=== PATIENT | female | born 1995 | race Caucasian/White ===

== ENCOUNTER 2019-01-24 12:01 | Inpatient (IN) | payer BC, MEDICAID ==
[2019-01-24] MEDS ORDERED: Sodium Chloride 0.9% 1,000 ML IV ONE (13:20)
--- NOTE | 2019-01-24 13:31 | EDM.PDOC ---
ED HPI GENERAL MEDICAL PROBLEM - General Chief Complaint: Drug or Alcohol Abuse Stated Complaint: ALCOHOL EVALUATION Time Seen by Provider: 01/24/19 12:33 Source of Information: Reports: RN (Aimee from [facility]) History Limitations: Reports: Intoxication - History of Present Illness INITIAL COMMENTS - FREE TEXT/NARRATIVE: 23 yo F is brought here today from [facility] after showing up for a f/u appt w/ Meena Paty intoxicated and stated she had SI (she denies it now). No one is sure how much she has had to drink, but she is intoxicated and was drinking while in the clinic, had an entire bag of travel size EtOH on her person. Per DIA Yu at [place], she has had 2 DUI's in the past 2 weeks, was seen at least 3 times in the ED w/in the last month for intoxication, and has been driving her 7 yo around drunk. She has never been in treatment before, and was supposed to follow up outpt for EtOH treatment, but never did. She has h/o being hospitalized for seizures, most recently 2 week ago at hospital in [place]. She was held there for 24H for SI. Currently she is intoxicated and unable to provide history. 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 - Physical Exam Exam: See Below Exam Limited By: Intoxication General Appearance: Alert Eye Exam: Bilateral Eye: EOMI, Normal Inspection, PERRL Ears: Normal External Exam, Hearing Grossly Normal Nose: Normal Inspection, Normal Mucosa, No Blood Throat/Mouth: Normal Inspection, Normal Lips, Normal Teeth, Normal Gums, Normal Oropharynx, Normal Voice, No Airway Compromise Head Exam: Atraumatic, Normocephalic Neck: Normal Inspection, Supple, Non-Tender, Full Range of Motion Respiratory/Chest: No Respiratory Distress, Lungs Clear, Normal Breath Sounds, No Accessory Muscle Use, Chest Non-Tender Cardiovascular: Normal Peripheral Pulses, No Edema, No Gallop, No JVD, No Murmur , No Rub, Tachycardia GI/Abdominal: Normal Bowel Sounds, Soft, Non-Tender, No Organomegaly, No Distention, No Abnormal Bruit, No Mass Neuro Exam (Abbreviated): Alert. No: Oriented (intoxicated) Back Exam: Normal Inspection, Full Range of Motion, NT Extremities: Normal Inspection, Normal Range of Motion, Non-Tender, No Pedal Edema, Normal Capillary Refill Psychiatric: Other (Intoxicated) Skin Exam: Warm, Dry, Intact, Normal Color, No Rash EKG INTERPRETATION EKG Date: 01/24/19 Rhythm: NSR [place]: Normal P-Wave: Present QRS: Normal ST-T: Normal QT: Normal Course - Vital Signs Last Recorded V/S: Last Vital Signs Temp 98.1 F 01/24/19 12:22 Pulse 91 01/24/19 12:22 Resp 12 01/24/19 12:22 BP 139/81 01/24/19 12:22 Pulse Ox 95 01/24/19 12:22 - Orders/Labs/Meds Orders: Active Orders 24 hr Category Date Time Status Admission Status [Patient Status] [ADT] Routine ADT 01/24/19 13:41 Active EKG 12 Lead [EKG Documentation Completion] [RC] STAT Care 01/24/19 13:20 Active CBC WITH MANUAL DIFF [HEME] Stat Lab 01/24/19 12:30 Results DRUG SCREEN, URINE [URCHEM] Stat Lab 01/24/19 13:05 Received HCG QUANTITATIVE [CHEM] Stat Lab 01/24/19 12:30 Received MAGNESIUM [CHEM] Stat Lab 01/24/19 12:30 Received Sodium Chloride 0.9% [Normal Saline] 1,000 ml Med 01/24/19 13:20 Active IV ONETIME Code Status [Resuscitation Status] Stat Resus Stat 01/24/19 13:43 Ordered Medication Orders Sodium Chloride (Normal Saline) 1,000 mls @ 999 mls/hr IV ONETIME ONE Stop: 01/24/19 14:20 Last Admin: 01/24/19 13:34 Dose: 999 mls/hr Labs: Laboratory Tests 01/24/19 01/24/19 Range/Units 12:30 12:30 WBC 10.14 H (3.98-10.04) K/mm3 RBC 4.54 (3.98-5.22) M/mm3 Hgb 13.8 (11.2-15.7) gm/L Hct 40.7 (34.1-44.9) % MCV 89.6 (79.4-94.8) fl MCH 30.4 (25.6-32.2) pg MCHC 33.9 (32.2-35.5) g/dl RDW Std Deviation 43.1 (36.4-46.3) fL Plt Count 451 H (182-369) K/mm3 MPV 9.5 (9.4-12.3) fl Sodium 140 (136-145) mEq/L Potassium 3.1 L (3.5-5.1) mEq/L Chloride 102 (98-107) mEq/L Carbon Dioxide 24 (21-32) mEq/L Anion Gap 17.1 H (5-15) BUN 12 (7-18) mg/dL Creatinine 1.0 (0.55-1.02) mg/dL Est Cr Clr Drug Dosing 80.51 mL/min Estimated GFR (MDRD) > 60 (>60) mL/min BUN/Creatinine Ratio 12.0 L (14-18) Glucose 143 H (74-106) mg/dL Calcium 8.6 (8.5-10.1) mg/dL Total Bilirubin 0.3 (0.2-1.0) mg/dL AST 47 H (15-37) U/L ALT 54 (14-59) U/L Alkaline Phosphatase 79 (46-116) U/L Total Protein 7.8 (6.4-8.2) g/dl Albumin 3.9 (3.4-5.0) g/dl Globulin 3.9 gm/dL Albumin/Globulin Ratio 1.0 (1-2) Ethyl Alcohol 0.42 (0.00) gm% Meds: Medications Generic Name Dose Route Start Last Admin Trade Name Freq PRN Reason Stop Dose Admin Sodium Chloride 1,000 mls @ 999 mls/hr 01/24/19 13:20 01/24/19 13:34 Normal Saline IV 01/24/19 14:20 999 mls/hr ONETIME ONE Administration - Re-Assessments/Exams Free Text/Narrative Re-Assessment/Exam: 01/24/19 13:36 EKG, CBC, CMP, HCG, EtOH, Drug screen ordered IVF ordered Discussed case w/ Carol HDZ, recommends filing [phone] Discussed case w/ Dr. Kline and he has accepted the pt into ICU for EtOH withdrawal and she will need to be committed once medically stable. Departure - Departure Time of Disposition: 13:38 Disposition: Admitted As Inpatient 64 Condition: Undetermined Clinical Impression: Alcohol abuse, Alcohol intoxication - Discharge Information *PRESCRIPTION DRUG MONITORING PROGRAM REVIEWED*: Not Applicable *COPY OF PRESCRIPTION DRUG MONITORING REPORT IN PATIENT EVE: Not Applicable Referrals: Meena Newman PA-C [Primary Care Provider] - - My Orders Last 24 Hours: My Active Orders 01/24/19 12:30 CBC WITH MANUAL DIFF [HEME] Stat HCG QUANTITATIVE [CHEM] Stat MAGNESIUM [CHEM] Stat 01/24/19 13:05 DRUG SCREEN, URINE [URCHEM] Stat 01/24/19 13:20 EKG 12 Lead [EKG Documentation Completion] [RC] STAT Sodium Chloride 0.9% [Normal Saline] 1,000 ml IV ONETIME 01/24/19 13:41 Admission Status [Patient Status] [ADT] Routine 01/24/19 13:43 Code Status [Resuscitation Status] Stat - Assessment/Plan Last 24 Hours: My Active Orders 01/24/19 12:30 CBC WITH MANUAL DIFF [HEME] Stat HCG QUANTITATIVE [CHEM] Stat MAGNESIUM [CHEM] Stat 01/24/19 13:05 DRUG SCREEN, URINE [URCHEM] Stat 01/24/19 13:20 EKG 12 Lead [EKG Documentation Completion] [RC] STAT Sodium Chloride 0.9% [Normal Saline] 1,000 ml IV ONETIME 01/24/19 13:41 Admission Status [Patient Status] [ADT] Routine 01/24/19 13:43 Code Status [Resuscitation Status] Stat
[2019-01-24] MEDS ORDERED: LORazepam 2 MG/ML SDV IVPUSH ONE (14:16)
[2019-01-24] MEDS ORDERED: LORazepam 1 MG Tab PO ONE (15:19)
--- NOTE | 2019-01-24 16:33 | PCM.CONS ---
H&P History of Present Illness - General Date of Service: 01/24/19 Admit Problem/Dx: Admission Diagnosis/Problem Admission Diagnosis/Problem Alcohol intoxication - History of Present Illness Initial Comments - Free Text/Narative: This is a 23-year-old female who presents to the emergency room with alcohol intoxication. We were called to the emergency room for evaluation of inpatient treatment for alcohol withdrawal. Patient states that she had 2 shots of alcohol today and the bottles with her are single shot bottles of a 49.5% alcohol. Patient states she had 3 shots yesterday. Patient denies any abdominal pain, hematochezia, melena, nausea, vomiting, anxiety, shakes, or headache. She states that she does not want to be admitted to the hospital. Patient is capable of answering questions, calling people on her phone, and is reasonable when talked to. She did walk to the bathroom under her own power with no significant gait disturbance and returned without incident. At this time patient does not want to stay in the emergency room and has expressed this to me and the other providers. - Related Data Allergies/Adverse Reactions: Allergies Allergy/AdvReac Type Severity Reaction Status Date / Time Penicillins Allergy Rash Verified 01/24/19 12:27 Home Medications: Home Meds Escitalopram [Lexapro] 10 mg PO DAILY 01/24/19 [History] Folic Acid 1 mg PO DAILY 01/24/19 [History] Multivitamin [Multivitamins] 1 each PO DAILY 01/24/19 [History] Thiamine [Vitamin B-1] 100 mg PO DAILY 01/24/19 [History] hydrOXYzine HCl [Atarax] 25 mg PO BEDTIME 01/24/19 [History] hydrOXYzine HCl [Atarax] 25 mg PO QID PRN 01/24/19 [History] Past Medical History MD DO [facility] History: Reports: Psychiatric History: Reports: Addiction, Anxiety, Depression Social & Family History - Tobacco Use Smoking Status *Q: Current Every Day Smoker Years of Tobacco use: 2 Packs/Tins Daily: 0.5 - Caffeine Use Caffeine Use: Reports: Coffee, Energy Drinks, Soda - Alcohol Use Days Per Week of Alcohol Use: 7 Number of Drinks Per Day: 5 Total Drinks Per Week: 35 - Recreational Drug Use Recreational Drug Use: No H&P Review of Systems - Review of Systems: Review Of Systems: See Below General: Reports: No Symptoms HEENT: Reports: No Symptoms Pulmonary: Reports: No Symptoms Cardiovascular: Reports: No Symptoms Gastrointestinal: Reports: No Symptoms Genitourinary: Reports: No Symptoms Musculoskeletal: Reports: No Symptoms Skin: Reports: No Symptoms Psychiatric: Reports: No Symptoms Neurological: Reports: No Symptoms Exam - Exam Exam: See Below - Vital Signs Vital Signs: Last Vital Signs Temp 98.1 F 01/24/19 12:22 Pulse 91 01/24/19 12:22 Resp 12 01/24/19 12:22 BP 139/81 01/24/19 12:22 Pulse Ox 95 01/24/19 12:22 Weight: 165 lb - Exam General: Alert, Oriented, Cooperative HEENT: Conjunctiva Clear, EOMI, Mucosa Moist & [place] (Mildly dry mucous membranes ) Neck: Supple, Trachea Midline Lungs: Clear to Auscultation, Normal Respiratory Effort Cardiovascular: Regular Rate, Regular Rhythm GI/Abdominal Exam: Normal Bowel Sounds, Soft, Non-Tender, No Organomegaly, No Distention, No Abnormal Bruit Back Exam: Normal Inspection Extremities: Normal Inspection Neurological: Cranial Nerves Intact, Normal Gait Neuro Extensive - Mental Status: Alert (Slurred speech with some difficulty word finding.) - Patient Data Lab Results Last 24 hrs: Laboratory Results - last 24 hr 01/24/19 01/24/19 01/24/19 Range/Units 12:30 12:30 12:30 WBC 10.14 H (3.98-10.04) K/mm3 RBC 4.54 (3.98-5.22) M/mm3 Hgb 13.8 (11.2-15.7) gm/L Hct 40.7 (34.1-44.9) % MCV 89.6 (79.4-94.8) fl MCH 30.4 (25.6-32.2) pg MCHC 33.9 (32.2-35.5) g/dl RDW Std Deviation 43.1 (36.4-46.3) fL Plt Count 451 H (182-369) K/mm3 MPV 9.5 (9.4-12.3) fl Neutrophils % (Manual) 79 H (40-60) % Band Neutrophils % 0 (0-10) % Lymphocytes % (Manual) 20 (20-40) % Atypical Lymphs % 0 % Monocytes % (Manual) 1 L (2-10) % Eosinophils % (Manual) 0 L (0.7-5.8) % Basophils % (Manual) 0 L (0.1-1.2) Platelet Estimate Adequate RBC Morph Comment Normal Sodium 140 (136-145) mEq/L Potassium 3.1 L (3.5-5.1) mEq/L Chloride 102 (98-107) mEq/L Carbon Dioxide 24 (21-32) mEq/L Anion Gap 17.1 H (5-15) BUN 12 (7-18) mg/dL Creatinine 1.0 (0.55-1.02) mg/dL Est Cr Clr Drug Dosing 80.51 mL/min Estimated GFR (MDRD) > 60 (>60) mL/min BUN/Creatinine Ratio 12.0 L (14-18) Glucose 143 H (74-106) mg/dL Calcium 8.6 (8.5-10.1) mg/dL Magnesium 2.2 (1.8-2.4) mg/dl Total Bilirubin 0.3 (0.2-1.0) mg/dL AST 47 H (15-37) U/L ALT 54 (14-59) U/L Alkaline Phosphatase 79 (46-116) U/L Total Protein 7.8 (6.4-8.2) g/dl Albumin 3.9 (3.4-5.0) g/dl Globulin 3.9 gm/dL Albumin/Globulin Ratio 1.0 (1-2) HCG, Quant < 1.0 mIU/mL Urine Opiates Screen (UOACJB=966) Ur Buprenorphine Scrn (CUTOFF=10) Ur Oxycodone Screen (UQM0XY=964) Urine Methadone Screen (XLQIAE=065) Ur Propoxyphene Screen (RLRFMT=719) Ur Barbiturates Screen (ROTSTL=618) Ur Tricyclics Screen (CZUPIA=380) Ur Phencyclidine Scrn (CUTOFF=25) Ur Amphetamine Screen (ORAXNE=166) U Methamphetamines Scrn (RSWKJK=120) U Benzodiazepines Scrn (CWFPHX=836) U Cocaine Metab Screen (MSEQZE=873) U Marijuana (THC) Screen (CUTOFF=50) Ethyl Alcohol 0.42 (0.00) gm% 01/24/19 Range/Units 13:05 WBC (3.98-10.04) K/mm3 RBC (3.98-5.22) M/mm3 Hgb (11.2-15.7) gm/L Hct (34.1-44.9) % MCV (79.4-94.8) fl MCH (25.6-32.2) pg MCHC (32.2-35.5) g/dl RDW Std Deviation (36.4-46.3) fL Plt Count (182-369) K/mm3 MPV (9.4-12.3) fl Neutrophils % (Manual) (40-60) % Band Neutrophils % (0-10) % Lymphocytes % (Manual) (20-40) % Atypical Lymphs % % Monocytes % (Manual) (2-10) % Eosinophils % (Manual) (0.7-5.8) % Basophils % (Manual) (0.1-1.2) Platelet Estimate RBC Morph Comment Sodium (136-145) mEq/L Potassium (3.5-5.1) mEq/L Chloride (98-107) mEq/L Carbon Dioxide (21-32) mEq/L Anion Gap (5-15) BUN (7-18) mg/dL Creatinine (0.55-1.02) mg/dL Est Cr Clr Drug Dosing mL/min Estimated GFR (MDRD) (>60) mL/min BUN/Creatinine Ratio (14-18) Glucose (74-106) mg/dL Calcium (8.5-10.1) mg/dL Magnesium (1.8-2.4) mg/dl Total Bilirubin (0.2-1.0) mg/dL AST (15-37) U/L ALT (14-59) U/L Alkaline Phosphatase (46-116) U/L Total Protein (6.4-8.2) g/dl Albumin (3.4-5.0) g/dl Globulin gm/dL Albumin/Globulin Ratio (1-2) HCG, Quant mIU/mL Urine Opiates Screen Negative (WBTDCI=560) Ur Buprenorphine Scrn Negative (CUTOFF=10) Ur Oxycodone Screen Negative (MFX4GC=566) Urine Methadone Screen Negative (QFWKCG=299) Ur Propoxyphene Screen Negative (DSOAXE=204) Ur Barbiturates Screen Negative (WELBSE=816) Ur Tricyclics Screen Negative (RZZEZI=515) Ur Phencyclidine Scrn Negative (CUTOFF=25) Ur Amphetamine Screen Negative (ADSNQT=152) U Methamphetamines Scrn Negative (WJMYHG=323) U Benzodiazepines Scrn Negative (SFONML=645) U Cocaine Metab Screen Negative (FTKNDD=986) U Marijuana (THC) Screen Negative (CUTOFF=50) Ethyl Alcohol (0.00) gm% Result Diagrams: 01/24/19 12:30 01/24/19 12:30 Imaging Impressions Last 24 hrs: ECG Normal sinus rhythm with ventricular rate of 74 bpm. Right axis deviation. RSR prime in V1 likely normal variant. Otherwise normal ECG Consult PN Assessment/Plan Procedures: Procedures CHORIONIC GONADOTROPIN TEST (02/27/15) (1) Alcohol abuse SNOMED Code(s): 78847355 Code(s): F10.10 - ALCOHOL ABUSE, UNCOMPLICATED Current Visit: No (2) Alcohol intoxication SNOMED Code(s): 31493316 Code(s): F10.929 - ALCOHOL USE, UNSPECIFIED WITH INTOXICATION, UNSPECIFIED Current Visit: No Problem List Initiated/Reviewed/Updated: Yes Plan: Patient is clearly intoxicated. At this time she is refusing to be admitted to the hospital. It would be best for her to be detoxed in the emergency room prior to discharge home. If patient changes her mind and would like to stay in the hospital as an inpatient for detox and possible alcohol rehabilitation placement I would be happy to do so. At this time, she does not want to be admitted. Requesting Provider: TREVOR Lieberman Date Consult Requested: 01/24/19 Reason for Consult: Alcohol intoxication Patient History Reviewed: Yes Notified Requestor: Yes Time Spent (in minutes): 60
--- NOTE | 2019-01-24 17:52 | PCM.HP ---
H&P History of Present Illness - General Date of Service: 01/24/19 Admit Problem/Dx: Alcohol intoxication Source of Information: Provider History Limitations: Reports: No Limitations - History of Present Illness Initial Comments - Free Text/Narative: 23 year old female with history of alcohol abuse/dependence as well as withdrawal seizures. The presents to the ED after drinking in the [facility]. She has had two DUIs in the last two weeks. ETOH blood level was 0.42, she had multiple small, 60 cc bottles of 99 proof, [place]. Some apparently were consumed in the [facility]. She apparently was last treated in the ED in [place]; this has occurred at least three times in 30 days. The patient reportedly has been intoxicated when driving with her seven year old child in the car. Onset of Symptoms: Reports: Unknown/Unsure Symptom Onset Date: 01/24/19 Duration of Symptoms: Reports: Hour(s):, Getting Worse Location: Reports: Generalized Quality: Reports: Same as Previous Episode Severity: Severe Improves with: Reports: Medication Worsens with: Reports: Other (drinking) Associated Symptoms: Reports: Confusion - Related Data Allergies/Adverse Reactions: Allergies Allergy/AdvReac Type Severity Reaction Status Date / Time Penicillins Allergy Rash Verified 01/24/19 12:27 Home Medications: Home Meds Escitalopram [Lexapro] 10 mg PO DAILY 01/24/19 [History] Folic Acid 1 mg PO DAILY 01/24/19 [History] Multivitamin [Multivitamins] 1 each PO DAILY 01/24/19 [History] Thiamine [Vitamin B-1] 100 mg PO DAILY 01/24/19 [History] hydrOXYzine HCl [Atarax] 25 mg PO BEDTIME 01/24/19 [History] hydrOXYzine HCl [Atarax] 25 mg PO QID PRN 01/24/19 [History] 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 Exam - Exam Exam: See Below - Vital Signs Vital Signs: Last Vital Signs Temp 36.7 C 01/24/19 12:22 Pulse 91 01/24/19 12:22 Resp 12 01/24/19 12:22 BP 139/81 01/24/19 12:22 Pulse Ox 95 01/24/19 12:22 Weight: 74.843 kg - Exam Quality Assessment: DVT Prophylaxis General: Sedated HEENT: Pupils Equal, Pupils Reactive, PERRLA Neck: Supple Lungs: Clear to Auscultation, Normal Respiratory Effort Cardiovascular: Regular Rate, Regular Rhythm GI/Abdominal Exam: Normal Bowel Sounds, Soft, Non-Tender, No Organomegaly, No Distention (Female) Exam: Deferred Rectal (Female) Exam: Deferred Back Exam: Normal Inspection Extremities: Normal Inspection, Normal Capillary Refill Skin: Warm Neurological: Cranial Nerves Intact Neuro Extensive - Motor, Sensory, Reflexes: CN II-XII Intact Psychiatric: Other (drowsy) - Patient Data Lab Results Last 24 hrs: Laboratory Results - last 24 hr 01/24/19 01/24/19 01/24/19 Range/Units 12:30 12:30 12:30 WBC 10.14 H (3.98-10.04) K/mm3 RBC 4.54 (3.98-5.22) M/mm3 Hgb 13.8 (11.2-15.7) gm/L Hct 40.7 (34.1-44.9) % MCV 89.6 (79.4-94.8) fl MCH 30.4 (25.6-32.2) pg MCHC 33.9 (32.2-35.5) g/dl RDW Std Deviation 43.1 (36.4-46.3) fL Plt Count 451 H (182-369) K/mm3 MPV 9.5 (9.4-12.3) fl Neutrophils % (Manual) 79 H (40-60) % Band Neutrophils % 0 (0-10) % Lymphocytes % (Manual) 20 (20-40) % Atypical Lymphs % 0 % Monocytes % (Manual) 1 L (2-10) % Eosinophils % (Manual) 0 L (0.7-5.8) % Basophils % (Manual) 0 L (0.1-1.2) Platelet Estimate Adequate RBC Morph Comment Normal Sodium 140 (136-145) mEq/L Potassium 3.1 L (3.5-5.1) mEq/L Chloride 102 (98-107) mEq/L Carbon Dioxide 24 (21-32) mEq/L Anion Gap 17.1 H (5-15) BUN 12 (7-18) mg/dL Creatinine 1.0 (0.55-1.02) mg/dL Est Cr Clr Drug Dosing 80.51 mL/min Estimated GFR (MDRD) > 60 (>60) mL/min BUN/Creatinine Ratio 12.0 L (14-18) Glucose 143 H (74-106) mg/dL Calcium 8.6 (8.5-10.1) mg/dL Magnesium 2.2 (1.8-2.4) mg/dl Total Bilirubin 0.3 (0.2-1.0) mg/dL AST 47 H (15-37) U/L ALT 54 (14-59) U/L Alkaline Phosphatase 79 (46-116) U/L Total Protein 7.8 (6.4-8.2) g/dl Albumin 3.9 (3.4-5.0) g/dl Globulin 3.9 gm/dL Albumin/Globulin Ratio 1.0 (1-2) HCG, Quant < 1.0 mIU/mL Urine Opiates Screen (ZNPVIG=034) Ur Buprenorphine Scrn (CUTOFF=10) Ur Oxycodone Screen (CCH7XK=229) Urine Methadone Screen (RFLJYT=828) Ur Propoxyphene Screen (VZOMJB=063) Ur Barbiturates Screen (DQFAZC=688) Ur Tricyclics Screen (OWRRJV=859) Ur Phencyclidine Scrn (CUTOFF=25) Ur Amphetamine Screen (CWJDPK=782) U Methamphetamines Scrn (LGGEOS=671) U Benzodiazepines Scrn (SAELNU=405) U Cocaine Metab Screen (VAGWNJ=676) U Marijuana (THC) Screen (CUTOFF=50) Ethyl Alcohol 0.42 (0.00) gm% 01/24/19 Range/Units 13:05 WBC (3.98-10.04) K/mm3 RBC (3.98-5.22) M/mm3 Hgb (11.2-15.7) gm/L Hct (34.1-44.9) % MCV (79.4-94.8) fl MCH (25.6-32.2) pg MCHC (32.2-35.5) g/dl RDW Std Deviation (36.4-46.3) fL Plt Count (182-369) K/mm3 MPV (9.4-12.3) fl Neutrophils % (Manual) (40-60) % Band Neutrophils % (0-10) % Lymphocytes % (Manual) (20-40) % Atypical Lymphs % % Monocytes % (Manual) (2-10) % Eosinophils % (Manual) (0.7-5.8) % Basophils % (Manual) (0.1-1.2) Platelet Estimate RBC Morph Comment Sodium (136-145) mEq/L Potassium (3.5-5.1) mEq/L Chloride (98-107) mEq/L Carbon Dioxide (21-32) mEq/L Anion Gap (5-15) BUN (7-18) mg/dL Creatinine (0.55-1.02) mg/dL Est Cr Clr Drug Dosing mL/min Estimated GFR (MDRD) (>60) mL/min BUN/Creatinine Ratio (14-18) Glucose (74-106) mg/dL Calcium (8.5-10.1) mg/dL Magnesium (1.8-2.4) mg/dl Total Bilirubin (0.2-1.0) mg/dL AST (15-37) U/L ALT (14-59) U/L Alkaline Phosphatase (46-116) U/L Total Protein (6.4-8.2) g/dl Albumin (3.4-5.0) g/dl Globulin gm/dL Albumin/Globulin Ratio (1-2) HCG, Quant mIU/mL Urine Opiates Screen Negative (TYTJVF=269) Ur Buprenorphine Scrn Negative (CUTOFF=10) Ur Oxycodone Screen Negative (NXK1NJ=974) Urine Methadone Screen Negative (STIVQX=091) Ur Propoxyphene Screen Negative (UUDNAB=948) Ur Barbiturates Screen Negative (SVONDB=857) Ur Tricyclics Screen Negative (SDIZER=790) Ur Phencyclidine Scrn Negative (CUTOFF=25) Ur Amphetamine Screen Negative (BBRETT=727) U Methamphetamines Scrn Negative (QFQQKC=868) U Benzodiazepines Scrn Negative (SZMTKC=923) U Cocaine Metab Screen Negative (ORYZYX=867) U Marijuana (THC) Screen Negative (CUTOFF=50) Ethyl Alcohol (0.00) gm% Result Diagrams: 01/24/19 12:30 01/24/19 12:30 Problem List Initiated/Reviewed/Updated: Yes Orders Last 24hrs: Active Orders 24 hr Category Date Time Status Admission Status [Patient Status] [ADT] Routine ADT 01/24/19 17:21 Active Code Status [Resuscitation Status] Stat Resus Stat 01/24/19 13:43 Ordered Assessment/Plan Comment:: Impression: Alcohol intoxication Alcohol dependence Hx of ETOH withdrawal seizure Plan: IVF Electrolyte replacement SZ precautions Aspiration precautions Consult Psych/SA/SW DVT/GI prophylaxis
[2019-01-24] MEDS ORDERED: LORazepam 2 MG/ML SDV IVPUSH PRN (17:55)
[2019-01-24] MEDS ORDERED: hydrALAZINE 20 MG/ML SDV IVPUSH PRN (17:58)
[2019-01-24] MEDS ORDERED: Thiamine 200 MG/2 ML MDV IV SCH (18:15)
[2019-01-24] MEDS ORDERED: Ondansetron 4 MG/2 ML SDV IVPUSH PRN (18:55)
[2019-01-24] MEDS: Metoprolol Tartrate 25 MG Tab PO SCH (19:00)
[2019-01-24] MEDS: Lactated Ringers 1,000 ML IV SCH ×3 (19:00→21:18)
[2019-01-24] MEDS: Thiamine 200 MG/2 ML MDV IV SCH (20:18)
[2019-01-24] MEDS: chlordiazePOXIDE 25 MG Cap PO SCH (20:19)
[2019-01-24] MEDS: Potassium Chloride 20 MEQ Tab.ER PO SCH ×2 (20:19→21:20)
[2019-01-24] MEDS ORDERED: QUEtiapine 25 MG Tab PO SCH (21:00)
[2019-01-25] MEDS ORDERED: LORazepam 2 MG/ML SDV IVPUSH PRN (02:42)
[2019-01-25] MEDS: Lactated Ringers 1,000 ML IV SCH ×3 (05:10→12:16)
[2019-01-25] MEDS: Metoprolol Tartrate 25 MG Tab PO SCH ×2 (06:12→17:38)
[2019-01-25] MEDS: Potassium Chloride 20 MEQ Tab.ER PO SCH ×2 (08:20→20:03)
[2019-01-25] MEDS: chlordiazePOXIDE 25 MG Cap PO SCH ×3 (08:21→20:05)
[2019-01-25] MEDS: Folic Acid 1 MG Tab PO SCH (08:21)
[2019-01-25] MEDS: Topiramate 25 MG Tab PO SCH ×2 (08:21→20:05)
[2019-01-25] MEDS: Thiamine 200 MG/2 ML MDV IV SCH (08:22)
--- NOTE | 2019-01-25 11:46 | PCM.PN ---
- General Info Date of Service: 01/25/19 Subjective Update: Increasing anxiety Functional Status: Reports: Urinating - Review of Systems General: Reports: No Symptoms HEENT: Reports: No Symptoms Pulmonary: Reports: No Symptoms Cardiovascular: Reports: No Symptoms Gastrointestinal: Reports: No Symptoms Genitourinary: Reports: No Symptoms Musculoskeletal: Reports: No Symptoms Skin: Reports: No Symptoms Neurological: Reports: No Symptoms Psychiatric: Reports: Anxiety - Patient Data Vitals - Most Recent: Last Vital Signs Temp 36.4 C 01/25/19 08:00 Pulse 93 01/25/19 08:00 Resp 15 01/25/19 08:00 BP 143/84 H 01/25/19 08:00 Pulse Ox 100 01/25/19 08:00 Weight - Most Recent: 88.451 kg I&O - Last 24 Hours: Intake & Output 01/24/19 01/25/19 01/25/19 22:59 06:59 14:59 Intake Total 180 3621 Output Total 500 Balance 180 3121 Lab Results Last 24 Hours: Laboratory Results - last 24 hr 01/24/19 01/24/19 01/24/19 Range/Units 12:30 12:30 12:30 WBC 10.14 H (3.98-10.04) K/mm3 RBC 4.54 (3.98-5.22) M/mm3 Hgb 13.8 (11.2-15.7) gm/L Hct 40.7 (34.1-44.9) % MCV 89.6 (79.4-94.8) fl MCH 30.4 (25.6-32.2) pg MCHC 33.9 (32.2-35.5) g/dl RDW Std Deviation 43.1 (36.4-46.3) fL Plt Count 451 H (182-369) K/mm3 MPV 9.5 (9.4-12.3) fl Neut % (Auto) (34.0-71.1) % Lymph % (Auto) (19.3-51.7) % Clare % (Auto) (4.7-12.5) % Eos % (Auto) (0.7-5.8) Baso % (Auto) (0.1-1.2) % Neut # (Auto) (1.56-6.13) K/mm3 Lymph # (Auto) (1.18-3.74) K/mm3 Clare # (Auto) (0.24-0.36) K/mm3 Eos # (Auto) (0.04-0.36) K/mm3 Baso # (Auto) (0.01-0.08) K/mm3 Neutrophils % (Manual) 79 H (40-60) % Band Neutrophils % 0 (0-10) % Lymphocytes % (Manual) 20 (20-40) % Atypical Lymphs % 0 % Monocytes % (Manual) 1 L (2-10) % Eosinophils % (Manual) 0 L (0.7-5.8) % Basophils % (Manual) 0 L (0.1-1.2) Platelet Estimate Adequate RBC Morph Comment Normal Sodium 140 (136-145) mEq/L Potassium 3.1 L (3.5-5.1) mEq/L Chloride 102 (98-107) mEq/L Carbon Dioxide 24 (21-32) mEq/L Anion Gap 17.1 H (5-15) BUN 12 (7-18) mg/dL Creatinine 1.0 (0.55-1.02) mg/dL Est Cr Clr Drug Dosing 80.51 mL/min Estimated GFR (MDRD) > 60 (>60) mL/min BUN/Creatinine Ratio 12.0 L (14-18) Glucose 143 H (74-106) mg/dL Calcium 8.6 (8.5-10.1) mg/dL Magnesium 2.2 (1.8-2.4) mg/dl Total Bilirubin 0.3 (0.2-1.0) mg/dL AST 47 H (15-37) U/L ALT 54 (14-59) U/L Alkaline Phosphatase 79 (46-116) U/L C-Reactive Protein (<1.0) mg/dL Total Protein 7.8 (6.4-8.2) g/dl Albumin 3.9 (3.4-5.0) g/dl Globulin 3.9 gm/dL Albumin/Globulin Ratio 1.0 (1-2) HCG, Quant < 1.0 mIU/mL Urine Opiates Screen (GCTVTO=609) Ur Buprenorphine Scrn (CUTOFF=10) Ur Oxycodone Screen (ANP6CN=477) Urine Methadone Screen (DDNBAA=882) Ur Propoxyphene Screen (HZGWLL=161) Ur Barbiturates Screen (MXMOEU=151) Ur Tricyclics Screen (KQTSGM=996) Ur Phencyclidine Scrn (CUTOFF=25) Ur Amphetamine Screen (DWCFIU=903) U Methamphetamines Scrn (LLJNEM=399) U Benzodiazepines Scrn (WFPBVM=489) U Cocaine Metab Screen (XDEHGH=993) U Marijuana (THC) Screen (CUTOFF=50) Ethyl Alcohol 0.42 (0.00) gm% 01/24/19 01/25/19 01/25/19 Range/Units 13:05 04:50 04:50 WBC 6.99 (3.98-10.04) K/mm3 RBC 3.93 L (3.98-5.22) M/mm3 Hgb 11.9 (11.2-15.7) gm/L Hct 35.2 (34.1-44.9) % MCV 89.6 (79.4-94.8) fl MCH 30.3 (25.6-32.2) pg MCHC 33.8 (32.2-35.5) g/dl RDW Std Deviation 42.7 (36.4-46.3) fL Plt Count 347 (182-369) K/mm3 MPV 9.9 (9.4-12.3) fl Neut % (Auto) 59.8 (34.0-71.1) % Lymph % (Auto) 31.9 (19.3-51.7) % Clare % (Auto) 6.6 (4.7-12.5) % Eos % (Auto) 1.1 (0.7-5.8) Baso % (Auto) 0.6 (0.1-1.2) % Neut # (Auto) 4.18 (1.56-6.13) K/mm3 Lymph # (Auto) 2.23 (1.18-3.74) K/mm3 Clare # (Auto) 0.46 H (0.24-0.36) K/mm3 Eos # (Auto) 0.08 (0.04-0.36) K/mm3 Baso # (Auto) 0.04 (0.01-0.08) K/mm3 Neutrophils % (Manual) (40-60) % Band Neutrophils % (0-10) % Lymphocytes % (Manual) (20-40) % Atypical Lymphs % % Monocytes % (Manual) (2-10) % Eosinophils % (Manual) (0.7-5.8) % Basophils % (Manual) (0.1-1.2) Platelet Estimate RBC Morph Comment Sodium 140 (136-145) mEq/L Potassium 3.6 (3.5-5.1) mEq/L Chloride 103 (98-107) mEq/L Carbon Dioxide 25 (21-32) mEq/L Anion Gap 15.6 H (5-15) BUN 10 (7-18) mg/dL Creatinine 0.9 (0.55-1.02) mg/dL Est Cr Clr Drug Dosing 92.92 mL/min Estimated GFR (MDRD) > 60 (>60) mL/min BUN/Creatinine Ratio 11.1 L (14-18) Glucose 69 L (74-106) mg/dL Calcium 8.3 L (8.5-10.1) mg/dL Magnesium 1.4 L (1.8-2.4) mg/dl Total Bilirubin (0.2-1.0) mg/dL AST (15-37) U/L ALT (14-59) U/L Alkaline Phosphatase (46-116) U/L C-Reactive Protein 0.4 (<1.0) mg/dL Total Protein (6.4-8.2) g/dl Albumin (3.4-5.0) g/dl Globulin gm/dL Albumin/Globulin Ratio (1-2) HCG, Quant mIU/mL Urine Opiates Screen Negative (DUWLSP=182) Ur Buprenorphine Scrn Negative (CUTOFF=10) Ur Oxycodone Screen Negative (UUT6XF=177) Urine Methadone Screen Negative (BJECFB=128) Ur Propoxyphene Screen Negative (HKFZUA=421) Ur Barbiturates Screen Negative (VFWUHJ=873) Ur Tricyclics Screen Negative (PJGGCQ=128) Ur Phencyclidine Scrn Negative (CUTOFF=25) Ur Amphetamine Screen Negative (AUTLPA=188) U Methamphetamines Scrn Negative (MPUMYC=766) U Benzodiazepines Scrn Negative (OBGUEQ=492) U Cocaine Metab Screen Negative (CYJNAW=423) U Marijuana (THC) Screen Negative (CUTOFF=50) Ethyl Alcohol 0.00 (0.00) gm% Med Orders - Current: Current Medications Chlordiazepoxide HCl (Librium) 25 mg PO TID [facility] Last Admin: 01/25/19 08:21 Dose: 25 mg Folic Acid (Folic Acid) 1 mg PO DAILY [facility] Last Admin: 01/25/19 08:21 Dose: 1 mg Hydralazine HCl (Apresoline) 20 mg IVPUSH Q6H PRN PRN Reason: Hypertension Lactated Ringer's (Ringers, Lactated) 1,000 mls @ 125 mls/hr IV ASDIRECTED [facility] Last Admin: 01/25/19 05:10 Dose: 125 mls/hr Lorazepam (Ativan) 2 mg IVPUSH Q6H PRN PRN Reason: Seizures Lorazepam (Ativan) 1 - 3 mg IVPUSH Q4H PRN; Protocol PRN Reason: Anxiety Last Admin: 01/25/19 02:49 Dose: 1 mg Metoprolol Tartrate (Lopressor) 5 mg IVPUSH Q4H PRN PRN Reason: HR>120 Metoprolol Tartrate (Lopressor) 25 mg PO Q12H [facility] Last Admin: 01/25/19 06:12 Dose: Not Given Ondansetron HCl (Zofran) 4 mg IVPUSH Q8H PRN PRN Reason: Nausea/Vomiting Potassium Chloride (Klor-Con M20) 40 meq PO BID [facility] Last Admin: 01/25/19 08:20 Dose: 40 meq Quetiapine Fumarate (Seroquel) 50 mg PO BEDTIME RONDA Thiamine HCl (Vitamin B-1) 100 mg PO BEDTIME [facility] Topiramate (Topamax) 25 mg PO BID [facility] Last Admin: 01/25/19 08:21 Dose: 25 mg Discontinued Medications Sodium Chloride (Normal Saline) 1,000 mls @ 999 mls/hr IV ONETIME ONE Stop: 01/24/19 14:20 Last Admin: 01/24/19 13:34 Dose: 999 mls/hr Lactated Ringer's (Ringers, Lactated) 1,000 mls @ 999 mls/hr IV Q1H [facility] Stop: 01/24/19 20:04 Last Admin: 01/24/19 20:11 Dose: 999 mls/hr Lorazepam (Ativan) 0.5 mg IVPUSH ONETIME ONE Stop: 01/24/19 14:17 Last Admin: 01/24/19 15:36 Dose: Not Given Lorazepam (Ativan) 1 mg PO ONETIME ONE Stop: 01/24/19 15:20 Last Admin: 01/24/19 15:32 Dose: 1 mg Quetiapine Fumarate (Seroquel) 25 mg PO BEDTIME [facility] Last Admin: 01/24/19 20:19 Dose: 25 mg Thiamine HCl (Vitamin B-1) 1 mg IV DAILY [facility] Last Admin: 01/24/19 18:38 Dose: Not Given Thiamine HCl (Vitamin B-1) 100 mg IV DAILY [facility] Last Admin: 01/25/19 08:22 Dose: 100 mg - Exam Quality Assessment: DVT Prophylaxis General: Alert, Oriented, Mild Distress HEENT: Pupils Equal, Pupils Reactive, EOMI Neck: Trachea Midline, No JVD Lungs: Normal Respiratory Effort Cardiovascular: Regular Rate, Tachycardia GI/Abdominal Exam: Normal Bowel Sounds, Soft, Non-Tender, No Organomegaly, No Distention (Female) Exam: Deferred Back Exam: Normal Inspection Extremities: Normal Inspection, Non-Tender, Normal Capillary Refill Skin: Warm Neurological: No New Focal Deficit Psy/Mental Status: Anxious - Problem List Review Problem List Initiated/Reviewed/Updated: Yes - My Orders Last 24 Hours: My Active Orders 01/24/19 17:52 CIWAA Assessment [RC] Q4HR 01/24/19 17:55 LORazepam [Ativan] 2 mg IVPUSH Q6H PRN 01/24/19 17:57 Metoprolol Tartrate [Lopressor] 5 mg IVPUSH Q4H PRN 01/24/19 17:58 hydrALAZINE [Apresoline] 20 mg IVPUSH Q6H PRN 01/24/19 18:00 Metoprolol Tartrate [Lopressor] 25 mg PO Q12H 01/24/19 18:03 Notify Provider Consults [RC] ASDIRECTED 01/24/19 18:08 Consult to Case Management/Cashier Self Service Gasoline [CONS] Routine 01/24/19 18:10 Aspiration Precautions [RC] ASDIRECTED 01/24/19 18:11 Head of Bed Elevation [RC] ASDIRECTED 01/24/19 18:55 Ondansetron [Zofran] 4 mg IVPUSH Q8H PRN 01/24/19 19:00 Potassium Chloride [Klor-Con M20] 40 meq PO BID 01/24/19 19:43 EKG Documentation Completion [RC] ASDIRECTED EKG 12 Lead [EK] Routine 01/24/19 20:45 Lactated Ringers [Ringers, Lactated] 1,000 ml IV ASDIRECTED 01/24/19 21:00 chlordiazePOXIDE [Librium] 25 mg PO TID 01/25/19 02:42 LORazepam [Ativan] 1 - 3 mg IVPUSH Q4H PRN 01/25/19 09:00 Consult to Physician [CONS] Routine Folic Acid 1 mg PO DAILY Topiramate [Topamax] 25 mg PO BID 01/25/19 09:51 One To One Therapy [BH] Stat 01/25/19 10:00 Consult for Substance Abuse [CONS] Routine 01/25/19 18:10 Seizure Precautions [OM.PC] Routine 01/25/19 Breakfast NPO [Nothing Per Oral Diet] [DIET] 01/26/19 05:00 BMP [BASIC METABOLIC PANEL,BMP] [CHEM] DAILY CBC WITH AUTO DIFF [HEME] DAILY MAGNESIUM [CHEM] DAILY 01/27/19 05:00 BMP [BASIC METABOLIC PANEL,BMP] [CHEM] DAILY CBC WITH AUTO DIFF [HEME] DAILY MAGNESIUM [CHEM] DAILY 01/28/19 05:00 BMP [BASIC METABOLIC PANEL,BMP] [CHEM] DAILY CBC WITH AUTO DIFF [HEME] DAILY MAGNESIUM [CHEM] DAILY 01/29/19 05:00 BMP [BASIC METABOLIC PANEL,BMP] [CHEM] DAILY CBC WITH AUTO DIFF [HEME] DAILY MAGNESIUM [CHEM] DAILY - Plan Plan:: Impression: Alcohol intoxication Alcohol dependence Hx of ETOH withdrawal seizure Plan: IVF Add schedule clonidine, contiune BB/apresoline prn. Electrolyte replacement SZ precautions Aspiration precautions Consult Psych--completd/SA--today/SW DVT/GI prophylaxis
--- NOTE | 2019-01-25 14:11 | CONS ---
CONSULTING PHYSICIAN: Sam Woodruff MD DATE OF CONSULTATION: 01/25/2019 This is a 60-minute inpatient telemedicine event. Site where the services are provided is [facility] in [place], [place]. Site where the services are provided from our office is in [facility]. Length of time for this 60-minute inpatient telemedicine event is 60 minutes. IDENTIFICATION: The patient is a 23-year-old female who is admitted to the inpatient MICU at [facility]. She is seen for psychiatric consultation per the request of staff attending Dr. Kapoor and our inpatient treatment team. CHIEF COMPLAINT: "Do not have withdrawals." HISTORY OF PRESENT ILLNESS: The patient is a 23-year-old female who reports that she had gone to see her outpatient care provider Meena Newman, who is a nurse practitioner over at [facility] and according to the patient, they apparently "decided to go in a different direction" and admitted her to the hospital. Evidently, according to staff reports, the patient had a BAL of 0.42 and had been drinking in the bathroom at the outpatient clinic. For her part, the patient is stating that "I drink sometimes" and states that she usually has "a few shots" of liquor a couple of times a week. Staff is reporting that they have collateral information indicating that the patient has been drinking up to 1 bottle of hard liquor a day. She also has a history of withdrawal seizures. When asked about this fact, she does state that she did have a withdrawal seizure last month "over in [place]." She also states "I have anxiety" but denies any depression or sleep disturbance. She states that she knows that she has a drinking problem, but does not like to quit drinking completely at this point in time, but does want to do outpatient treatment if possible. She denies that she is suicidal or homicidal. She denies any psychotic, delusional, or paranoid symptoms. She denies any illicit substance use complicating her clinical picture. She states that she is eager to be discharged, but she is willing to stay to manage her withdrawals that might occur and also to talk to an AA rep because she states "I have been thinking about going to and getting a sponsor." MEDICATIONS: At the time of presentation: 1. Lexapro 10 mg daily, which the patient states has been helping for anxiety. 2. Hydroxyzine 25 mg q.i.d. p.r.n., 25 mg at bedtime schedule. 3. Multivitamin. 4. Folic acid supplementation. 5. Thiamine supplementation. ALLERGIES: The patient is allergic to penicillin. PAST MEDICAL HISTORY: History of withdrawal seizure, which the patient states occurred last month in [place]. REVIEW OF SYSTEMS: Aside from neuro, all other major organ systems are negative at this point in time for acute difficulties or complications. FAMILY PSYCHIATRIC AND CD HISTORY: The patient denies. PAST PSYCHIATRIC AND CD HISTORY: The patient reports 1 psychiatric hospitalization in the past, which appears that has been alcohol related. Denies any chemical dependency treatment. She denies any previous suicide attempts, self-injurious behaviors, or eating disorder history. Denies any abuse issues while being raised. Past psychiatric diagnosis includes depression and anxiety. The patient denies any previous psychiatric medication history. She states her primary care outpatient provider is Meena Newman, nurse practitioner out of [facility]. She states her longest sobriety has been for 2 weeks since drinking has been an issue for her. She states also that she has a DWI charge pending, but staff is reporting that she has gotten 2 DWIs in the past 2 weeks. SOCIAL HISTORY: The patient was born and raised in [place], [place]. She is the 4th of 6 siblings, having 2 brothers and 3 sisters. The patient's biological parents were throughout childhood and adolescence. Father works at [employer]. Mother was a business process architect. The patient's highest level of education was 1-1/2 years of college. She has never been and not in any current relationships at this point in time. She most recently had been working in [place], but is moving back to [place] to live with her parents. She has a 7-year-old son from a previous relationship who is living with her parents right now, and she denies any miscarriages or abortions in the past. Again, she is transitioning back from [place] to [place] to be with her parents, and she states her parents are supportive of her and might get help for her drinking issues. She denies any prior service. She again is reporting 1 DWI, but staff is reporting she has 2 DWI charges all within the last couple of weeks. The patient is Nondenominational in terms of her mandaen affiliation and dajuan formation. The patient enjoys physical activities such as working on and swimming and she enjoys hanging out with her 7-year-old son. MENTAL STATUS EXAM: The patient is a 23-year-old white female, in no apparent distress. Speech is of regular rate and rhythm. The patient is cognitively oriented x3. Psychomotor activity is within normal limits. There are no abnormal motor movements or tics observed. Gait and station are not observed. This patient is seated on the side of the bed for the purposes of the telemedicine consult. Mood is anxious. Affect is cooperative overall for the purposes of the inpatient consult, but somewhat subdued. There is no behavioral or stated evidence of acute suicidal or homicidal ideation or acute psychotic, delusional, or paranoid symptoms. Thought processes appear organized. There are no acute manic symptoms or loose associations evident. Judgment and insight into the severity of her alcohol addiction are fair to poor. Motivation for help is also fair to poor. VITAL SIGNS: 143/75, 74, 16, 98.8 degrees. IMPRESSION: [place] I: 1. Alcohol dependence, F10.20. 2. Anxiety disorder, not otherwise specified, F41.9. [place] II: None. [place] III: History of alcohol withdrawal seizure within the past month. [place] IV: Severe. [place] V: 55. PLAN: 1. Sobriety. 2. AA rep to visit the patient while on unit. 3. Pastoral guidance. 4. CD consult to assess the patient for chemical dependency treatment. 5. Folic acid supplementation. 6. Thiamine supplementation. 7. Ativan per [facility] protocol. 8. Librium scheduled 25 mg t.i.d. 9. Seroquel 50 mg at bedtime for clarity of thought and elimination of any type of psychotic symptoms. 10.Topamax 25 mg b.i.d. for seizure prophylaxis and anxiety reduction. 11.Recommend when the patient is medically stabilized that she be placed in chemical dependency treatment to help with her alcohol addiction. Would prefer an inpatient setting, but the patient is wanting to go on an outpatient basis. At this juncture, would continue to recommend an inpatient setting, but would not force the patient to do so as long as she is going to give the treatment setting a try and unless collateral information to the contrary is received, but would emphasize to patient that if she does go outpatient and comes back, that the next time she is admitted, we would likely pursue a commitment to place her in an inpatient treatment setting to help with her ongoing alcohol addiction. 12.Will continue to follow up with the patient on an as-needed basis while she remains on the inpatient MICU at [facility]. 13.Will follow up with the patient sooner if any complications in the interim. 14.Other medications as dosed and prescribed by the patient's primary inpatient medical treatment team. 15.Crisis plan is in place. LINO /[id number]
[2019-01-25] MEDS: Metoprolol Tartrate 5 MG/5 ML SDV IVPUSH PRN (15:28)
[2019-01-25] MEDS: LORazepam 2 MG/ML SDV IVPUSH PRN ×2 (16:32→17:33)
[2019-01-25] MEDS: cloNIDine 0.1 MG Tab PO SCH (18:04)
[2019-01-25] MEDS: QUEtiapine 25 MG Tab PO SCH (20:04)
[2019-01-26] MEDS: Metoprolol Tartrate 25 MG Tab PO SCH ×2 (05:58→17:20)
[2019-01-26] MEDS: Potassium Chloride 20 MEQ Tab.ER PO SCH ×2 (08:03→21:01)
[2019-01-26] MEDS: Topiramate 25 MG Tab PO SCH ×2 (08:03→21:02)
[2019-01-26] MEDS: Folic Acid 1 MG Tab PO SCH (08:03)
[2019-01-26] MEDS: chlordiazePOXIDE 25 MG Cap PO SCH ×3 (08:03→21:02)
[2019-01-26] MEDS: cloNIDine 0.1 MG Tab PO SCH ×2 (08:04→21:01)
[2019-01-26] MEDS ORDERED: Magnesium Sulfate/Water 2 GM in Premix Bag 1 BAG IV ONE (09:30)
[2019-01-26] MEDS: Metoprolol Tartrate 5 MG/5 ML SDV IVPUSH PRN (10:10)
--- NOTE | 2019-01-26 14:30 | CONS ---
CONSULTING PHYSICIAN: Boom Stark LAC DATE OF CONSULTATION: 01/26/2019 TIME: At 12:53 p.m. The patient is a 23-year-old female, who was admitted to [facility] ICU on 01/24/2019. An alcohol and drug consultation was requested by her medical treatment team. SOURCE OF INFORMATION: Hospital records, staff report, collateral report, background research, and a prescription drug monitoring report. HISTORY OF PRESENT ILLNESS: The patient is a 23-year-old female, who was brought to [facility] from [facility] after showing up for her appointment with TREVOR Recinos; intoxicated with a ELIZABETH 0.42 and verbalizing suicidal ideation. Staff reports the patient was drinking and intoxicated at the clinic and had an entire bag of travel size shooters on her person. The patient was brought to [facility] ER for the patient's safety. Upon admission to [facility] the ED, the patient reports that she had 2 DUIs in the past 2 weeks, was seen at least 3 times in the last month at [facility] emergency room for intoxication and has been driving her 7-year-old son around while intoxicated. Collateral from patient's family indicates that the patient's sister attempted a petition for involuntary commitment a month ago as the patient was drinking a bottle of vodka +99 proof shooters on a daily basis and was texting to her ex-boyfriend suicidal messages. PSYCHOSOCIAL HISTORY: The patient reports she was born and raised in [place], [place] by her biological parents, who were still together. She has one brother and one sister. The patient reports that she graduated from [employer] in 2011 where she maintained above average grades and was "popular". The patient reports that she got while in high school and had a child during her senior year. Her son Bonifacio is 7 years old. The patient reports that she and her son are currently living under the care of her mother. 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 and more recently at [employer] in [employer] [place], however, she is currently unemployed and trying to move back to [facility]. The patient reports that she is not currently involved with a significant other and that her child's father has little to do with the child. MENTAL HEALTH HISTORY: Dr. Ranjan MD evaluated the patient and reports a diagnosis of depression with a history of [address] Ranjan MD coordinated on this evaluation and recommends a direct admit for an inpatient dual diagnosis program as the patient has verbalized suicidal threats and drinking to fatal levels. SUBSTANCE ABUSE HISTORY: The patient self-reported substance abuse history with minimize generalized an equivocating. The patient was hesitant to provide credible substance use history. Tobacco: The patient denied the use of tobacco during her alcohol and drug evaluation. However, she reported to [facility] ED that she is a current every day smoker and has been smoking for the past 2 years, a half pack a day. Alcohol: The patient reports that she started drinking the first time the night of graduation in 2011, but could remember what or how much she drank. She then stated that she did not drink again until 6 months ago and has been drinking "once or not at all" a month. She does report that she enjoys drinking anything 99 Proof, 99 Bananas, or 99 Black Ferguson or any vodka. When asked if she felt impaired at the time of admission to the ER with her ELIZABETH 0.42, she reported that she did not. Aside from the patient's contradictory self report what we do know is drinking to fatal levels, ELIZABETH 0.42 without symptoms of impairment can indicate a biological predisposition to alcoholism, but more certainly it would indicate chronic substance use secondary to alcohol use disorder, severe. Collateral report from patient's mother, brother and sister indicates that the patient started maladaptively drinking 2 years ago, starting with a bottle of vodka every 2 days and escalating in the past year to drinking a bottle of vodka and 10-12 99 Proof shooters every day. The patient's brother reports that the patient came to [place] to stay with him the week of 12/31/2018 and he required the patient to do a Breathalyzer to stay with him. He states that she did not blow under 0.20 at any time throughout the day from morning until night. He reports that he saw her "chug a 0.5 L in 1 shot." The patient brother goes on to report that at the end of that week, the patient was highly intoxicated with lesions all over in her mouth from drinking and throwing up. He states her blood pressure was 250/150 when he took her to [place] ER for help. According to the patient's brother, the patient was discharged and wanted to drive to get back to [facility]. He stated he searched her car and there were over 100 empty 99 Banana shooters in her trunk. He goes on to report that when she got to [facility], she began to see and ended up in [facility] ED with the hospital stay 2-3 more days. The patient's sister reports that the patient drinks every day and will "yell to everyone around her to get her liquor or she says she will kill herself." The patient presents with extreme denial and arduously who checks her ability to drink. The patient denies all other illicit or illicit substance use. The patient's drug monitoring report was pulled with no remarkable results. The patient has had 2 DUIs in the past 2 weeks. Collateral report indicates the patient experiences blackout, passed out, and severe withdrawals including seizures. The patient has had at least 4 hospital admission in the past several months for intoxication and/or withdrawal. The patient reports that she has had no chemical dependency treatment in the past. DIAGNOSIS: 1. F10.20, alcohol use disorder, severe. 2. F10.229 alcohol intoxication. 3. F10.232 alcohol withdrawal with perceptual disturbance. 4. F17.200 tobacco use disorder, severe. ASAM DIMENSION: Dimension 1: Score 3. The patient presents with severe signs and symptoms of intoxication with a ELIZABETH 0.42, indicating possible imminent danger to herself and others. She also presents with symptoms of severe withdrawal including seizures. Dimension 2: Score 0. The patient presents with full functioning and good ability to cope with physical problems and does not present with biomedical signs symptoms that would cause concern for continued care. Dimension 3: Score 1. The patient has been diagnosed by Dr. Ranjan MD with depression, emotional concerns may relate to the negative consequences with the fact of addiction. Dimension 4: Score 4B. The patient presents with imminent danger to care for herself and others and immediate action is required. The patient is not willing to explore change and is in denial regarding illness and its implications. The patient is unable to follow through and has little to follow through with treatment and has little or no awareness of substance abuse or mental health problems and the associated negative consequences. Dimension 5: Score 4B. The patient appears to have no skills to cope with or interrupt addiction problem or prevent her limit relapse or continued use. The patient demonstrates severe craving with no ability to resist. The patient presents with daily intoxication and is in eminent danger or unable to care for herself and others. Dimension 6: Score 2. The patient currently lives with mother, but is planning on living alone, which presents high risk for continued use. The patient's family appeared to be unable to intervene because of the patient's emotional manipulation. The patient is a single parent who has been putting her son's life in danger because of her drinking and a 960 form will be generated by [facility] and Boom Stark LAC resulting in social service intervention. The patient is also facing criminal legal charges with 2 DUIs in the past 2 weeks and may be facing correction time. ASSESSMENT SUMMARY: The patient presents with chronic alcohol use disorder, severe, in stage III addiction, manifesting with extreme denial of her addiction and its implications. A psychological and physical dependence on alcohol, a highly developed defense mechanism and inability to achieve and maintain sobriety without professional intervention, although the patient agreed to follow through with this alcohol and drug evaluation for self report with minimize generalized an equivocating the substance of the patient's alcohol use history was obtained through collateral information from the patient's mother, sister and brother. Family reports that they are extremely concerned for this patient and her safety and have tried to commit her to treatment recently; however, the patient's emotional manipulation of the family stops them. The patient presents with a ELIZABETH 0.42 and was able to adequately function with supports collateral information that the patient is drinking every day approximately 20 ounces of alcohol given her body weight. The patient meet ASAM eminent danger criteria requiring a petition for involuntary commitment. The patient also meets ASAM criteria for level 3.7, medically monitored inpatient treatment as there are concerns for residual seizures, post withdrawal stabilization. A petition for an involuntary commitment was executed on 01/25/[address] [facility] or any admitting facility. The patient's medical treatment team was consulted regarding this evaluation and were in agreement with the safe discharge plan. A 960 will be filed with [facility]. RECOMMENDATION: Level 3.7, medically monitored inpatient treatment on a petition for involuntary commitment to the [facility] or any admitting facility. MMODAL /[id number]
--- NOTE | 2019-01-26 15:07 | PCM.PN ---
- General Info Date of Service: 01/26/19 Functional Status: Reports: Tolerating Diet, Ambulating, Urinating - Review of Systems General: Reports: No Symptoms HEENT: Reports: No Symptoms Pulmonary: Reports: No Symptoms Cardiovascular: Reports: No Symptoms Gastrointestinal: Reports: No Symptoms Genitourinary: Reports: No Symptoms Musculoskeletal: Reports: No Symptoms Skin: Reports: No Symptoms Neurological: Reports: No Symptoms Psychiatric: Reports: Mood Lability (has lessened), Anxiety (less prominent) - Patient Data Vitals - Most Recent: Last Vital Signs Temp 36.3 C 01/26/19 11:47 Pulse 80 01/26/19 11:47 Resp 16 01/26/19 11:47 BP 122/74 01/26/19 11:47 Pulse Ox 100 01/26/19 11:47 Weight - Most Recent: 88.451 kg I&O - Last 24 Hours: Intake & Output 01/26/19 01/26/19 01/26/19 06:59 14:59 22:59 Intake Total 990 180 Balance 990 180 Lab Results Last 24 Hours: Laboratory Results - last 24 hr 01/26/19 01/26/19 Range/Units 05:21 05:21 WBC 4.62 (3.98-10.04) K/mm3 RBC 4.29 (3.98-5.22) M/mm3 Hgb 13.1 (11.2-15.7) gm/L Hct 38.7 (34.1-44.9) % MCV 90.2 (79.4-94.8) fl MCH 30.5 (25.6-32.2) pg MCHC 33.9 (32.2-35.5) g/dl RDW Std Deviation 43.6 (36.4-46.3) fL Plt Count 325 (182-369) K/mm3 MPV 9.8 (9.4-12.3) fl Neut % (Auto) 47.2 (34.0-71.1) % Lymph % (Auto) 37.9 (19.3-51.7) % Page % (Auto) 12.8 H (4.7-12.5) % Eos % (Auto) 1.5 (0.7-5.8) Baso % (Auto) 0.6 (0.1-1.2) % Neut # (Auto) 2.18 (1.56-6.13) K/mm3 Lymph # (Auto) 1.75 (1.18-3.74) K/mm3 Page # (Auto) 0.59 H (0.24-0.36) K/mm3 Eos # (Auto) 0.07 (0.04-0.36) K/mm3 Baso # (Auto) 0.03 (0.01-0.08) K/mm3 Sodium 136 (136-145) mEq/L Potassium 3.6 (3.5-5.1) mEq/L Chloride 100 (98-107) mEq/L Carbon Dioxide 26 (21-32) mEq/L Anion Gap 13.6 (5-15) BUN 8 (7-18) mg/dL Creatinine 0.9 (0.55-1.02) mg/dL Est Cr Clr Drug Dosing 92.92 mL/min Estimated GFR (MDRD) > 60 (>60) mL/min BUN/Creatinine Ratio 8.9 L (14-18) Glucose 90 (74-106) mg/dL Calcium 9.0 (8.5-10.1) mg/dL Magnesium 1.7 L (1.8-2.4) mg/dl Med Orders - Current: Current Medications Chlordiazepoxide HCl (Librium) 25 mg PO TID [facility] Last Admin: 01/26/19 14:42 Dose: 25 mg Clonidine HCl (Catapres) 0.2 mg PO Q12HR [facility] Last Admin: 01/26/19 08:04 Dose: 0.2 mg Folic Acid (Folic Acid) 1 mg PO DAILY [facility] Last Admin: 01/26/19 08:03 Dose: 1 mg Hydralazine HCl (Apresoline) 20 mg IVPUSH Q6H PRN PRN Reason: Hypertension Last Admin: 01/25/19 15:10 Dose: 20 mg Lactated Ringer's (Ringers, Lactated) 1,000 mls @ 125 mls/hr IV ASDIRECTED [facility] Last Admin: 01/25/19 12:16 Dose: 125 mls/hr Lorazepam (Ativan) 2 mg IVPUSH Q6H PRN PRN Reason: Seizures Lorazepam (Ativan) 1 - 3 mg IVPUSH Q1H PRN; Protocol PRN Reason: Anxiety Last Admin: 01/25/19 17:33 Dose: 1 mg Metoprolol Tartrate (Lopressor) 5 mg IVPUSH Q4H PRN PRN Reason: HR>120 Last Admin: 01/26/19 10:10 Dose: 5 mg Metoprolol Tartrate (Lopressor) 25 mg PO Q12H [facility] Last Admin: 01/26/19 05:58 Dose: Not Given Ondansetron HCl (Zofran) 4 mg IVPUSH Q8H PRN PRN Reason: Nausea/Vomiting Potassium Chloride (Klor-Con M20) 40 meq PO BID [facility] Last Admin: 01/26/19 08:03 Dose: 40 meq Quetiapine Fumarate (Seroquel) 50 mg PO BEDTIME [facility] Last Admin: 01/25/19 20:04 Dose: 50 mg Thiamine HCl (Vitamin B-1) 100 mg PO BEDTIME RONDA Topiramate (Topamax) 25 mg PO BID [facility] Last Admin: 01/26/19 08:03 Dose: 25 mg Discontinued Medications Sodium Chloride (Normal Saline) 1,000 mls @ 999 mls/hr IV ONETIME ONE Stop: 01/24/19 14:20 Last Admin: 01/24/19 13:34 Dose: 999 mls/hr Lactated Ringer's (Ringers, Lactated) 1,000 mls @ 999 mls/hr IV Q1H [facility] Stop: 01/24/19 20:04 Last Admin: 01/24/19 20:11 Dose: 999 mls/hr Magnesium Sulfate 2 gm/ Premix 50 mls @ 25 mls/hr IV ONETIME ONE Stop: 01/26/19 11:29 Last Admin: 01/26/19 10:11 Dose: 25 mls/hr Lorazepam (Ativan) 0.5 mg IVPUSH ONETIME ONE Stop: 01/24/19 14:17 Last Admin: 01/24/19 15:36 Dose: Not Given Lorazepam (Ativan) 1 mg PO ONETIME ONE Stop: 01/24/19 15:20 Last Admin: 01/24/19 15:32 Dose: 1 mg Lorazepam (Ativan) 1 - 3 mg IVPUSH Q4H PRN; Protocol PRN Reason: Anxiety Last Admin: 01/25/19 02:49 Dose: 1 mg Quetiapine Fumarate (Seroquel) 25 mg PO BEDTIME [facility] Last Admin: 01/24/19 20:19 Dose: 25 mg Thiamine HCl (Vitamin B-1) 1 mg IV DAILY [facility] Last Admin: 01/24/19 18:38 Dose: Not Given Thiamine HCl (Vitamin B-1) 100 mg IV DAILY [facility] Last Admin: 01/25/19 08:22 Dose: 100 mg - Exam Quality Assessment: DVT Prophylaxis General: Alert, Oriented, Cooperative, No Acute Distress HEENT: Pupils Equal, Pupils Reactive, EOMI Neck: Trachea Midline, No JVD Lungs: Normal Respiratory Effort Cardiovascular: Regular Rate, Regular Rhythm GI/Abdominal Exam: Normal Bowel Sounds, Soft, Non-Tender, No Organomegaly, No Distention (Female) Exam: Deferred Back Exam: Normal Inspection Extremities: Normal Inspection, Non-Tender, Normal Capillary Refill Skin: Warm Neurological: No New Focal Deficit Psy/Mental Status: Alert, Anxious - Problem List Review Problem List Initiated/Reviewed/Updated: Yes - My Orders Last 24 Hours: My Active Orders 01/25/19 16:21 LORazepam [Ativan] 1 - 3 mg IVPUSH Q1H PRN 01/25/19 18:01 cloNIDine [Catapres] 0.2 mg PO Q12HR 01/25/19 18:10 Seizure Precautions [OM.PC] Routine 01/25/19 Dinner Regular Diet [DIET] 01/27/19 05:00 BMP [BASIC METABOLIC PANEL,BMP] [CHEM] DAILY CBC WITH AUTO DIFF [HEME] DAILY MAGNESIUM [CHEM] DAILY 01/28/19 05:00 BMP [BASIC METABOLIC PANEL,BMP] [CHEM] DAILY CBC WITH AUTO DIFF [HEME] DAILY MAGNESIUM [CHEM] DAILY 01/29/19 05:00 BMP [BASIC METABOLIC PANEL,BMP] [CHEM] DAILY CBC WITH AUTO DIFF [HEME] DAILY MAGNESIUM [CHEM] DAILY - Plan Plan:: Impression: Alcohol intoxication, acute withdrawal symptoms have improved Alcohol dependence Hx of ETOH withdrawal seizure Tobacco dependence Plan: IVF Nicotine replacement Add schedule clonidine, contiune BB/apresoline prn. Electrolyte replacement SZ precautions Aspiration precautions Psych Seroquel 50 mg Q HS Topamax 25 mg BID IP SA-->NDSH; needs [facility] on 01/28/19. DVT/GI prophylaxis
[2019-01-26] MEDS: QUEtiapine 25 MG Tab PO SCH (21:02)
[2019-01-26] MEDS: Thiamine 100 MG Tab PO SCH (21:02)
[2019-01-27] MEDS: Metoprolol Tartrate 25 MG Tab PO SCH ×2 (06:23→18:24)
[2019-01-27] MEDS: Topiramate 25 MG Tab PO SCH ×2 (08:53→21:11)
[2019-01-27] MEDS: Potassium Chloride 20 MEQ Tab.ER PO SCH ×2 (08:53→21:11)
[2019-01-27] MEDS: chlordiazePOXIDE 25 MG Cap PO SCH (08:54)
[2019-01-27] MEDS: Folic Acid 1 MG Tab PO SCH (08:54)
[2019-01-27] MEDS: cloNIDine 0.1 MG Tab PO SCH ×2 (09:43→21:11)
--- NOTE | 2019-01-27 11:04 | PCM.PN ---
- General Info Date of Service: 01/27/19 Functional Status: Reports: Pain Controlled, Tolerating Diet, Ambulating, Urinating - Review of Systems General: Reports: No Symptoms HEENT: Reports: No Symptoms Pulmonary: Reports: No Symptoms Cardiovascular: Reports: No Symptoms Gastrointestinal: Reports: No Symptoms Genitourinary: Reports: No Symptoms Musculoskeletal: Reports: No Symptoms Skin: Reports: No Symptoms Neurological: Reports: No Symptoms Psychiatric: Reports: No Symptoms - Patient Data Vitals - Most Recent: Last Vital Signs Temp 36.9 C 01/27/19 08:00 Pulse 63 01/27/19 08:00 Resp 16 01/27/19 08:00 BP 115/76 01/27/19 09:43 Pulse Ox 99 01/27/19 08:00 Weight - Most Recent: 88.451 kg I&O - Last 24 Hours: Intake & Output 01/26/19 01/27/19 01/27/19 21:59 06:59 14:59 Intake Total Balance Lab Results Last 24 Hours: Laboratory Results - last 24 hr 01/27/19 01/27/19 Range/Units 05:27 05:27 WBC 7.70 (3.98-10.04) K/mm3 RBC 4.18 (3.98-5.22) M/mm3 Hgb 12.6 (11.2-15.7) gm/L Hct 38.2 (34.1-44.9) % MCV 91.4 (79.4-94.8) fl MCH 30.1 (25.6-32.2) pg MCHC 33.0 (32.2-35.5) g/dl RDW Std Deviation 43.8 (36.4-46.3) fL Plt Count 314 (182-369) K/mm3 MPV 10.0 (9.4-12.3) fl Neut % (Auto) 54.8 (34.0-71.1) % Lymph % (Auto) 31.8 (19.3-51.7) % [place] % (Auto) 11.3 (4.7-12.5) % Eos % (Auto) 1.7 (0.7-5.8) Baso % (Auto) 0.3 (0.1-1.2) % Neut # (Auto) 4.22 (1.56-6.13) K/mm3 Lymph # (Auto) 2.45 (1.18-3.74) K/mm3 [place] # (Auto) 0.87 H (0.24-0.36) K/mm3 Eos # (Auto) 0.13 (0.04-0.36) K/mm3 Baso # (Auto) 0.02 (0.01-0.08) K/mm3 Sodium 140 (136-145) mEq/L Potassium 3.8 (3.5-5.1) mEq/L Chloride 106 (98-107) mEq/L Carbon Dioxide 24 (21-32) mEq/L Anion Gap 13.8 (5-15) BUN 13 (7-18) mg/dL Creatinine 1.0 (0.55-1.02) mg/dL Est Cr Clr Drug Dosing 83.63 mL/min Estimated GFR (MDRD) > 60 (>60) mL/min BUN/Creatinine Ratio 13.0 L (14-18) Glucose 103 (74-106) mg/dL Calcium 8.9 (8.5-10.1) mg/dL Magnesium 2.1 (1.8-2.4) mg/dl Med Orders - Current: Current Medications Chlordiazepoxide HCl (Librium) 25 mg PO TID [facility] Last Admin: 01/27/19 08:54 Dose: 25 mg Clonidine HCl (Catapres) 0.2 mg PO Q12HR [facility] Last Admin: 01/27/19 09:43 Dose: 0.2 mg Folic Acid (Folic Acid) 1 mg PO DAILY [facility] Last Admin: 01/27/19 08:54 Dose: 1 mg Hydralazine HCl (Apresoline) 20 mg IVPUSH Q6H PRN PRN Reason: Hypertension Last Admin: 01/25/19 15:10 Dose: 20 mg Lactated Ringer's (Ringers, Lactated) 1,000 mls @ 125 mls/hr IV ASDIRECTED [facility] Last Admin: 01/25/19 12:16 Dose: 125 mls/hr Lorazepam (Ativan) 2 mg IVPUSH Q6H PRN PRN Reason: Seizures Lorazepam (Ativan) 1 - 3 mg IVPUSH Q1H PRN; Protocol PRN Reason: Anxiety Last Admin: 01/25/19 17:33 Dose: 1 mg Metoprolol Tartrate (Lopressor) 5 mg IVPUSH Q4H PRN PRN Reason: HR>120 Last Admin: 01/26/19 10:10 Dose: 5 mg Metoprolol Tartrate (Lopressor) 25 mg PO Q12H [facility] Last Admin: 01/27/19 06:23 Dose: Not Given Ondansetron HCl (Zofran) 4 mg IVPUSH Q8H PRN PRN Reason: Nausea/Vomiting Potassium Chloride (Klor-Con M20) 40 meq PO BID [facility] Last Admin: 01/27/19 08:53 Dose: 40 meq Quetiapine Fumarate (Seroquel) 50 mg PO BEDTIME [facility] Last Admin: 01/26/19 21:02 Dose: 50 mg Thiamine HCl (Vitamin B-1) 100 mg PO BEDTIME [facility] Last Admin: 01/26/19 21:02 Dose: 100 mg Topiramate (Topamax) 25 mg PO BID [facility] Last Admin: 01/27/19 08:53 Dose: 25 mg Discontinued Medications Sodium Chloride (Normal Saline) 1,000 mls @ 999 mls/hr IV ONETIME ONE Stop: 01/24/19 14:20 Last Admin: 01/24/19 13:34 Dose: 999 mls/hr Lactated Ringer's (Ringers, Lactated) 1,000 mls @ 999 mls/hr IV Q1H [facility] Stop: 01/24/19 20:04 Last Admin: 01/24/19 20:11 Dose: 999 mls/hr Magnesium Sulfate 2 gm/ Premix 50 mls @ 25 mls/hr IV ONETIME ONE Stop: 01/26/19 11:29 Last Admin: 01/26/19 10:11 Dose: 25 mls/hr Lorazepam (Ativan) 0.5 mg IVPUSH ONETIME ONE Stop: 01/24/19 14:17 Last Admin: 01/24/19 15:36 Dose: Not Given Lorazepam (Ativan) 1 mg PO ONETIME ONE Stop: 01/24/19 15:20 Last Admin: 01/24/19 15:32 Dose: 1 mg Lorazepam (Ativan) 1 - 3 mg IVPUSH Q4H PRN; Protocol PRN Reason: Anxiety Last Admin: 01/25/19 02:49 Dose: 1 mg Quetiapine Fumarate (Seroquel) 25 mg PO BEDTIME [facility] Last Admin: 01/24/19 20:19 Dose: 25 mg Thiamine HCl (Vitamin B-1) 1 mg IV DAILY [facility] Last Admin: 01/24/19 18:38 Dose: Not Given Thiamine HCl (Vitamin B-1) 100 mg IV DAILY [facility] Last Admin: 01/25/19 08:22 Dose: 100 mg - Exam Quality Assessment: DVT Prophylaxis General: Alert, Oriented, Cooperative, No Acute Distress HEENT: Pupils Equal, Pupils Reactive, EOMI Neck: Trachea Midline, No JVD Lungs: Normal Respiratory Effort Cardiovascular: Regular Rate, Regular Rhythm GI/Abdominal Exam: Normal Bowel Sounds, Soft, Non-Tender, No Organomegaly, No Distention (Female) Exam: Deferred Back Exam: Normal Inspection Extremities: Normal Inspection, Non-Tender, Normal Capillary Refill Skin: Warm Neurological: No New Focal Deficit, Normal Gait, Normal Speech Psy/Mental Status: Alert, Labile Mood - Problem List Review Problem List Initiated/Reviewed/Updated: Yes - My Orders Last 24 Hours: My Active Orders 01/28/19 05:00 BMP [BASIC METABOLIC PANEL,BMP] [CHEM] DAILY CBC WITH AUTO DIFF [HEME] DAILY MAGNESIUM [CHEM] DAILY 01/29/19 05:00 BMP [BASIC METABOLIC PANEL,BMP] [CHEM] DAILY CBC WITH AUTO DIFF [HEME] DAILY MAGNESIUM [CHEM] DAILY - Plan Plan:: Impression: Alcohol intoxication, acute withdrawal symptoms have improved Alcohol dependence Hx of ETOH withdrawal seizure Tobacco dependence Plan: IVF Nicotine replacement Add schedule clonidine, continue BB/apresoline prn. Electrolyte replacement SZ precautions Aspiration precautions Psych Seroquel 50 mg Q HS Topamax 25 mg BID IP SA-->NDSH; DC on 01/28/19; will be evaluated by [facility]. DVT/GI prophylaxis
[2019-01-27] MEDS ORDERED: chlordiazePOXIDE 25 MG Cap PO PRN (14:43)
[2019-01-27] MEDS: QUEtiapine 25 MG Tab PO SCH (21:11)
[2019-01-27] MEDS: Thiamine 100 MG Tab PO SCH (21:13)
[2019-01-27] MEDS: Nicotine 21 MG/24 Hr Patch TRDERM SCH (21:37)
[2019-01-28] MEDS: Metoprolol Tartrate 25 MG Tab PO SCH (05:59)
[2019-01-28] MEDS: cloNIDine 0.1 MG Tab PO SCH (08:32)
[2019-01-28] MEDS: Potassium Chloride 20 MEQ Tab.ER PO SCH (08:33)
[2019-01-28] MEDS: Folic Acid 1 MG Tab PO SCH (08:33)
[2019-01-28] MEDS: Topiramate 25 MG Tab PO SCH (08:33)
[2019-01-28] MEDS: Nicotine 21 MG/24 Hr Patch TRDERM SCH (09:37)
--- NOTE | 2019-01-28 13:21 | PCM.DCSUM1 ---
Discharge Summary - Hospital Course Free Text/Narrative:: 23 year old will be admitted to [facility] for substance abuse treatment. She was treated per detox protocol in the ICU. Seroquel and Topamax as directed by Dr Woodruff. The patient has an involuntary commitment to [facility]. She was seen by dietary, substance abuse services, psychiatry in anticipation of IP treatment. Refer to consults for detailed information. HPI Initial Comments: 23 year old female with history of alcohol abuse/dependence as well as withdrawal seizures. The presents to the ED after drinking in the [facility]. She has had two DUIs in the last two weeks. ETOH blood level was 0.42, she had multiple small, 60 cc bottles of 99 proof, [place]. Some apparently were consumed in the [facility] [place]. She apparently was last treated in the ED in [place]; this has occurred at least three times in 30 days. The patient reportedly has been intoxicated when driving with her seven year old child in the car. Diagnosis: Stroke: No - Discharge Data Discharge Date: 01/28/19 Discharge Disposition: DC/Tfer to Inpt Rehab Fac 62 Condition: Good - Patient Summary/Data Consults: Consultations 01/24/19 18:08 Consult to Case Management/Manager Database [CONS] Routine 01/25/19 09:00 Consult to Physician [CONS] Routine 01/25/19 09:25 Consult to Spiritual Care [CONS] Routine 01/25/19 10:00 Consult for Substance Abuse [CONS] Routine - Patient Instructions Diet: Regular Diet as Tolerated Activity: As Tolerated Driving: Do Not Drive Showering/Bathing: May Shower Notify Provider of: Fever, Increased Pain - Discharge Plan *PRESCRIPTION DRUG MONITORING PROGRAM REVIEWED*: Not Applicable *COPY OF PRESCRIPTION DRUG MONITORING REPORT IN PATIENT EVE: Not Applicable Prescriptions/Med Rec: Folic Acid 1 mg PO DAILY #30 tablet Nicotine [Habitrol] 21 mg TRDERM DAILY #30 patch QUEtiapine [SEROquel] 50 mg PO BEDTIME #30 tablet Topiramate [Topamax] 25 mg PO BID #60 tablet Home Medications: Home Meds Multivitamin [Multivitamins] 1 each PO DAILY 01/24/19 [History] Thiamine [Vitamin B-1] 100 mg PO DAILY 01/24/19 [History] Folic Acid 1 mg PO DAILY #30 tablet 01/28/19 [Rx] Nicotine [Habitrol] 21 mg TRDERM DAILY #30 patch 01/28/19 [Rx] QUEtiapine [SEROquel] 50 mg PO BEDTIME #30 tablet 01/28/19 [Rx] Topiramate [Topamax] 25 mg PO BID #60 tablet 01/28/19 [Rx] Oxygen Therapy Mode: Room Air Patient Handouts: Alcohol Withdrawal, Substance Use Disorder, Alcohol Intoxication, [id number], Alcohol Abuse and Nutrition, Steps to Quit Smoking Referrals: Meena Newman PA-C [Primary Care Provider] - - Discharge Summary/Plan Comment DC Time >30 min.: No Discharge Summary/Plan Comment: Impression: Alcohol intoxication, acute withdrawal symptoms have improved Alcohol dependence Hx of ETOH withdrawal seizure Tobacco dependence Plan: IVF Nicotine replacement Add schedule clonidine, contiune BB/apresoline prn. Electrolyte replacement SZ precautions Aspiration precautions Psych Seroquel 50 mg Q HS Topamax 25 mg BID IP SA-->NDSH; needs [facility] on 01/28/19. DVT/GI prophylaxis - General Info Date of Service: 01/24/19 Functional Status: Reports: Pain Controlled, Tolerating Diet, Ambulating, Urinating - Review of Systems General: Reports: No Symptoms HEENT: Reports: No Symptoms Pulmonary: Reports: No Symptoms Cardiovascular: Reports: No Symptoms Gastrointestinal: Reports: No Symptoms Genitourinary: Reports: No Symptoms Musculoskeletal: Reports: No Symptoms Skin: Reports: No Symptoms Neurological: Reports: No Symptoms Psychiatric: Reports: No Symptoms - Patient Data Vitals - Most Recent: Last Vital Signs Temp 36.8 C 01/28/19 08:30 Pulse 69 01/28/19 08:30 Resp 16 01/28/19 08:30 BP 104/63 01/28/19 08:32 Pulse Ox 97 01/28/19 08:30 Weight - Most Recent: 85.865 kg I&O - Last 24 hours: Intake & Output 01/27/19 01/28/19 01/28/19 22:59 06:59 14:59 Intake Total 1520 240 Balance 1520 240 Lab Results - Last 24 hrs: Laboratory Results - last 24 hr 01/28/19 01/28/19 Range/Units 05:20 05:20 WBC 6.33 (3.98-10.04) K/mm3 RBC 4.12 (3.98-5.22) M/mm3 Hgb 12.5 (11.2-15.7) gm/L Hct 37.8 (34.1-44.9) % MCV 91.7 (79.4-94.8) fl MCH 30.3 (25.6-32.2) pg MCHC 33.1 (32.2-35.5) g/dl RDW Std Deviation 43.7 (36.4-46.3) fL Plt Count 299 (182-369) K/mm3 MPV 10.1 (9.4-12.3) fl Neut % (Auto) 45.4 (34.0-71.1) % Lymph % (Auto) 37.3 (19.3-51.7) % [place] % (Auto) 14.1 H (4.7-12.5) % Eos % (Auto) 2.5 (0.7-5.8) Baso % (Auto) 0.5 (0.1-1.2) % Neut # (Auto) 2.88 (1.56-6.13) K/mm3 Lymph # (Auto) 2.36 (1.18-3.74) K/mm3 [place] # (Auto) 0.89 H (0.24-0.36) K/mm3 Eos # (Auto) 0.16 (0.04-0.36) K/mm3 Baso # (Auto) 0.03 (0.01-0.08) K/mm3 Sodium 139 (136-145) mEq/L Potassium 4.1 (3.5-5.1) mEq/L Chloride 104 (98-107) mEq/L Carbon Dioxide 24 (21-32) mEq/L Anion Gap 15.1 H (5-15) BUN 14 (7-18) mg/dL Creatinine 1.0 (0.55-1.02) mg/dL Est Cr Clr Drug Dosing 83.63 mL/min Estimated GFR (MDRD) > 60 (>60) mL/min BUN/Creatinine Ratio 14.0 (14-18) Glucose 99 (74-106) mg/dL Calcium 9.2 (8.5-10.1) mg/dL Magnesium 2.0 (1.8-2.4) mg/dl Med Orders - Current: Current Medications Chlordiazepoxide HCl (Librium) 25 mg PO TID PRN PRN Reason: Withdrawal Symptoms Clonidine HCl (Catapres) 0.2 mg PO Q12HR [facility] Last Admin: 01/28/19 08:32 Dose: 0.2 mg Folic Acid (Folic Acid) 1 mg PO DAILY [facility] Last Admin: 01/28/19 08:33 Dose: 1 mg Hydralazine HCl (Apresoline) 20 mg IVPUSH Q6H PRN PRN Reason: Hypertension Last Admin: 01/25/19 15:10 Dose: 20 mg Lorazepam (Ativan) 2 mg IVPUSH Q6H PRN PRN Reason: Seizures Lorazepam (Ativan) 1 - 3 mg IVPUSH Q1H PRN; Protocol PRN Reason: Anxiety Last Admin: 01/25/19 17:33 Dose: 1 mg Metoprolol Tartrate (Lopressor) 5 mg IVPUSH Q4H PRN PRN Reason: HR>120 Last Admin: 01/26/19 10:10 Dose: 5 mg Metoprolol Tartrate (Lopressor) 25 mg PO Q12H [facility] Last Admin: 01/28/19 05:59 Dose: Not Given Miscellaneous Information (Remove Patch) 1 ea TRDERM DAILY [facility] Last Admin: 01/28/19 09:37 Dose: Not Given Nicotine (Habitrol) 21 mg TRDERM DAILY [facility] Last Admin: 01/28/19 09:37 Dose: Not Given Ondansetron HCl (Zofran) 4 mg IVPUSH Q8H PRN PRN Reason: Nausea/Vomiting Potassium Chloride (Klor-Con M20) 40 meq PO BID [facility] Last Admin: 01/28/19 08:33 Dose: 40 meq Quetiapine Fumarate (Seroquel) 50 mg PO BEDTIME [facility] Last Admin: 01/27/19 21:11 Dose: 50 mg Thiamine HCl (Vitamin B-1) 100 mg PO BEDTIME [facility] Last Admin: 01/27/19 21:13 Dose: 100 mg Topiramate (Topamax) 25 mg PO BID [facility] Last Admin: 01/28/19 08:33 Dose: 25 mg Discontinued Medications Chlordiazepoxide HCl (Librium) 25 mg PO TID [facility] Last Admin: 01/27/19 08:54 Dose: 25 mg Sodium Chloride (Normal Saline) 1,000 mls @ 999 mls/hr IV ONETIME ONE Stop: 01/24/19 14:20 Last Admin: 01/24/19 13:34 Dose: 999 mls/hr Lactated Ringer's (Ringers, Lactated) 1,000 mls @ 999 mls/hr IV Q1H [facility] Stop: 01/24/19 20:04 Last Admin: 01/24/19 20:11 Dose: 999 mls/hr Lactated Ringer's (Ringers, Lactated) 1,000 mls @ 125 mls/hr IV ASDIRECTED [facility] Last Admin: 01/25/19 12:16 Dose: 125 mls/hr Magnesium Sulfate 2 gm/ Premix 50 mls @ 25 mls/hr IV ONETIME ONE Stop: 01/26/19 11:29 Last Admin: 01/26/19 10:11 Dose: 25 mls/hr Lorazepam (Ativan) 0.5 mg IVPUSH ONETIME ONE Stop: 01/24/19 14:17 Last Admin: 01/24/19 15:36 Dose: Not Given Lorazepam (Ativan) 1 mg PO ONETIME ONE Stop: 01/24/19 15:20 Last Admin: 01/24/19 15:32 Dose: 1 mg Lorazepam (Ativan) 1 - 3 mg IVPUSH Q4H PRN; Protocol PRN Reason: Anxiety Last Admin: 01/25/19 02:49 Dose: 1 mg Quetiapine Fumarate (Seroquel) 25 mg PO BEDTIME [facility] Last Admin: 01/24/19 20:19 Dose: 25 mg Thiamine HCl (Vitamin B-1) 1 mg IV DAILY [facility] Last Admin: 01/24/19 18:38 Dose: Not Given Thiamine HCl (Vitamin B-1) 100 mg IV DAILY [facility] Last Admin: 01/25/19 08:22 Dose: 100 mg - Exam Quality Assessment: Reports: DVT Prophylaxis General: Reports: Alert, Oriented, Cooperative, No Acute Distress HEENT: Reports: Pupils Equal, Pupils Reactive, EOMI Neck: Reports: Trachea Midline, No JVD Lungs: Reports: Normal Respiratory Effort Cardiovascular: Reports: Regular Rate, Regular Rhythm GI/Abdominal Exam: Normal Bowel Sounds, Soft, Non-Tender, No Organomegaly, No Distention (Female) Exam: Deferred Rectal (Female) Exam: Deferred Back Exam: Reports: Normal Inspection Extremities: Normal Inspection, Non-Tender, Normal Capillary Refill Skin: Reports: Warm Psy/Mental Status: Reports: Alert, Labile Mood
== END 2019-01-28 16:11 | DRG 775 ==
LOC: JD.ED 12:01 → JD.ICU 13:41 → UNDOADMIN 13:41 → JD.ICU 17:21
PROVIDERS: ADMIT Internal Medicine Cardiovascular Disease; ATTEND Internal Medicine Cardiovascular Disease
DX: F10.239 Alcohol dependence with withdrawal, unspecified (principal); F10.229 Alcohol dependence with intoxication, unspecified; F17.210 Nicotine dependence, cigarettes, uncomplicated; F41.9 Anxiety disorder, unspecified; F32.9 Major depressive disorder, single episode, unspecified; Z88.0 Allergy status to penicillin; Z79.899 Other long term (current) drug therapy
CPT/HCPCS: 36415; 80048; 80053; 80306; 83735; 84702; 85007; 85025; 85027; 86140; 93005; 93010; 96360; 99285; 99285-25; A9270-GY; G0480; J0360; J2060; J3411; J3475; J3490; J7040; J7120

== ENCOUNTER 2020-09-02 16:41 | Emergency (ER) | payer BC, MEDICAID ==
--- NOTE | 2020-09-02 19:11 | EDM.PDOC ---
ED HPI GENERAL MEDICAL PROBLEM - General Chief Complaint: Drug or Alcohol Abuse Stated Complaint: DETOX-ING Time Seen by Provider: 09/02/20 19:01 - History of Present Illness INITIAL COMMENTS - FREE TEXT/NARRATIVE: 25-year-old female presents the emergency room trying to quit drinking. Patient's last drink was about 10:00 this morning. She drinks for the most part straight vodka. Patient has had a couple attempts at stopping drinking in the past. She does not report history of seizures with this. Usually she gets quite nauseated when she stops drinking and this is certainly the case at this point. The patient is somewhat shaky and has significant nausea and vomiting at this time. She denies significant pain anywhere. Also of concern is she is about 2 weeks late for her. However she has had a couple home test that have been unrevealing. 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: Neurological History: Reports: Seizure Psychiatric History: Reports: Addiction, Anxiety, Depression - Past Surgical History HEENT Surgical History: Reports: Other (See Below) Other HEENT Surgeries/Procedures: wisdom teeth Neurological Surgical History: Reports: None Social & Family History - Family History Family Medical History: Noncontributory - Tobacco Use Tobacco Use Status *Q: Unknown Ever Used Tobacco - Caffeine Use Caffeine Use: Reports: Coffee, Energy Drinks, Soda - Recreational Drug Use Recreational Drug Use: No ED ROS GENERAL - Review of Systems Review Of Systems: See Below Constitutional: Reports: No Symptoms HEENT: Reports: No Symptoms Respiratory: Reports: No Symptoms Cardiovascular: Reports: No Symptoms GI/Abdominal: Reports: Nausea, Vomiting. Denies: Abdominal Pain : Reports: Other (No symptoms other than being late for her menstrual perio d.) Musculoskeletal: Reports: No Symptoms Skin: Reports: Other (Seems to have a rash mostly on her face and to a lesser degree on her trunk this occurs when she drinks.) Neurological: Reports: No Symptoms. Denies: Seizure Psychiatric: Reports: Other (The patient takes Paxil) ED EXAM, GENERAL - Physical Exam Exam: See Below Exam Limited By: Intoxication General Appearance: Alert, No Apparent Distress Eye Exam: Bilateral Eye: Normal Inspection, PERRL Ears: Normal External Exam, Normal Canal, Hearing Grossly Normal, Normal TMs Nose: Normal Inspection, Normal Mucosa, No Blood Throat/Mouth: Normal Inspection, Normal Lips, Normal Teeth, Normal Gums, Normal Oropharynx, Normal Voice, No Airway Compromise Head: Atraumatic, Normocephalic Neck: Normal Inspection, Supple, Non-Tender, Full Range of Motion Respiratory/Chest: No Respiratory Distress, Lungs Clear, Normal Breath Sounds, No Accessory Muscle Use, Chest Non-Tender Cardiovascular: Normal Peripheral Pulses, Regular Rate, Rhythm, No Edema, No Gallop, No JVD, No Murmur, No Rub GI/Abdominal: Normal Bowel Sounds, Soft, Other (Vague discomfort throughout). No: Guarding, Rigid, Rebound Back Exam: Normal Inspection. No: CVA Tenderness (L), CVA Tenderness (R) Extremities: Normal Inspection, No Pedal Edema Neurological: Alert, Other (Answers questions appropriately initially she is not feeling very good) Skin Exam: Erythema Lymphatic: No Adenopathy Course - Vital Signs Last Recorded V/S: Last Vital Signs Temp 37.0 C 09/02/20 17:55 Pulse 98 09/02/20 17:55 Resp 16 09/02/20 17:55 BP 141/86 H 09/02/20 17:55 Pulse Ox 97 09/02/20 17:55 - Orders/Labs/Meds Orders: Active Orders 24 hr Category Date Time Status Abdomen 2V AP Flat Upright [CR] Stat Exams 09/02/20 23:13 Taken Lactated Ringers [Ringers, Lactated] 1,000 ml Med 09/02/20 23:00 Active IV ASDIRECTED Potassium Chloride [KCl 10 MEQ in Water 100 ML] 10 meq Med 09/03/20 02:00 Active Premix Bag 1 bag IV Q1H Medication Orders Lactated Ringer's (Ringers, Lactated) 1,000 mls @ 125 mls/hr IV ASDIRECTED RONDA Last Admin: 09/02/20 23:24 Dose: 125 mls/hr Documented by: DONN Potassium Chloride 10 meq/ (Premix) 100 mls @ 100 mls/hr IV Q1H RONDA Stop: 09/03/20 05:59 Last Admin: 09/03/20 03:10 Dose: 100 mls/hr Documented by: Infusion: 09/03/20 03:04 Dose: 100 mls/hr Documented by: Admin: 09/03/20 02:04 Dose: 100 mls/hr Documented by: DONN Labs: Laboratory Tests 09/02/20 09/02/20 09/02/20 Range/Units 18:45 18:45 18:45 WBC 10.23 H (3.98-10.04) K/mm3 RBC 4.98 (3.98-5.22) M/mm3 Hgb 15.5 D (11.2-15.7) gm/dl Hct 43.6 (34.1-44.9) % MCV 87.6 D (79.4-94.8) fl MCH 31.1 (25.6-32.2) pg MCHC 35.6 H (32.2-35.5) g/dl RDW Std Deviation 40.7 (36.4-46.3) fL Plt Count 462 H D (182-369) K/mm3 MPV 9.7 (9.4-12.3) fl Neut % (Auto) 82.8 H (34.0-71.1) % Lymph % (Auto) 10.5 L (19.3-51.7) % [place] % (Auto) 6.4 (4.7-12.5) % Eos % (Auto) 0 L (0.7-5.8) Baso % (Auto) 0.2 (0.1-1.2) % Neut # (Auto) 8.48 H (1.56-6.13) K/mm3 Lymph # (Auto) 1.07 L (1.18-3.74) K/mm3 [place] # (Auto) 0.65 H (0.24-0.36) K/mm3 Eos # (Auto) 0.00 L (0.04-0.36) K/mm3 Baso # (Auto) 0.02 (0.01-0.08) K/mm3 Manual Slide Review Normal smear PT 11.4 (9.7-11.7) SECONDS INR 1.07 Sodium 137 (136-145) mEq/L Potassium 2.5 L D (3.5-5.1) mEq/L Chloride 90 L D (98-107) mEq/L Carbon Dioxide 25 (21-32) mEq/L Anion Gap 24.5 H (5-15) BUN 12 (7-18) mg/dL Creatinine 1.2 H (0.55-1.02) mg/dL Est Cr Clr Drug Dosing 76.15 mL/min Estimated GFR (MDRD) 54 (>60) mL/min BUN/Creatinine Ratio 10.0 L (14-18) Glucose 147 H (74-106) mg/dL Calcium 9.4 (8.5-10.1) mg/dL Magnesium (1.8-2.4) mg/dl Total Bilirubin 1.0 (0.2-1.0) mg/dL GGT (5-55) U/L AST 68 H (15-37) U/L ALT 87 H (14-59) U/L Alkaline Phosphatase 97 (46-116) U/L Total Protein 8.7 H (6.4-8.2) g/dl Albumin 4.3 (3.4-5.0) g/dl Globulin 4.4 gm/dL Albumin/Globulin Ratio 1.0 (1-2) Lipase 85 (73-393) U/L TSH 3rd Generation (0.358-3.74) uIU/mL Urine Color (Yellow) Urine Appearance (Clear) Urine pH (5.0-8.0) Ur Specific [place] (1.005-1.030) Urine Protein (Negative) Urine Glucose (UA) (Negative) Urine Ketones (Negative) Urine Occult Blood (Negative) Urine Nitrite (Negative) Urine Bilirubin (Negative) Urine Urobilinogen (0.2-1.0) Ur Leukocyte Esterase (Negative) U Hyaline Cast (Auto) (0-5) /lpf Urine RBC (0-5) /hpf Urine WBC (0-5) /hpf Ur Squamous Epith Cells (0-5) /hpf Urine Bacteria (FEW) /hpf Urine Mucus (FEW) /hpf Urine HCG, Qual (NEGATIVE) Urine Opiates Screen (ENVZUC=643) Ur Buprenorphine Scrn (CUTOFF=10) Ur Oxycodone Screen (QMP6DO=420) Urine Methadone Screen (HBYSWN=041) Ur Propoxyphene Screen (WYRMJV=460) Ur Barbiturates Screen (ONQVPS=848) Ur Tricyclics Screen (AAVEPW=411) Ur Phencyclidine Scrn (CUTOFF=25) Ur Amphetamine Screen (JZIDIH=539) U Methamphetamines Scrn (JMFAOX=871) U Benzodiazepines Scrn (KMYYLX=423) U Cocaine Metab Screen (NCYYCQ=350) U Marijuana (THC) Screen (CUTOFF=50) Ethyl Alcohol (0.00) gm% 09/02/20 09/02/20 09/02/20 Range/Units 18:45 18:45 19:38 WBC (3.98-10.04) K/mm3 RBC (3.98-5.22) M/mm3 Hgb (11.2-15.7) gm/dl Hct (34.1-44.9) % MCV (79.4-94.8) fl MCH (25.6-32.2) pg MCHC (32.2-35.5) g/dl RDW Std Deviation (36.4-46.3) fL Plt Count (182-369) K/mm3 MPV (9.4-12.3) fl Neut % (Auto) (34.0-71.1) % Lymph % (Auto) (19.3-51.7) % [place] % (Auto) (4.7-12.5) % Eos % (Auto) (0.7-5.8) Baso % (Auto) (0.1-1.2) % Neut # (Auto) (1.56-6.13) K/mm3 Lymph # (Auto) (1.18-3.74) K/mm3 [place] # (Auto) (0.24-0.36) K/mm3 Eos # (Auto) (0.04-0.36) K/mm3 Baso # (Auto) (0.01-0.08) K/mm3 Manual Slide Review PT (9.7-11.7) SECONDS INR Sodium (136-145) mEq/L Potassium (3.5-5.1) mEq/L Chloride (98-107) mEq/L Carbon Dioxide (21-32) mEq/L Anion Gap (5-15) BUN (7-18) mg/dL Creatinine (0.55-1.02) mg/dL Est Cr Clr Drug Dosing mL/min Estimated GFR (MDRD) (>60) mL/min BUN/Creatinine Ratio (14-18) Glucose (74-106) mg/dL Calcium (8.5-10.1) mg/dL Magnesium 1.6 L (1.8-2.4) mg/dl Total Bilirubin (0.2-1.0) mg/dL GGT 270 H (5-55) U/L AST (15-37) U/L ALT (14-59) U/L Alkaline Phosphatase (46-116) U/L Total Protein (6.4-8.2) g/dl Albumin (3.4-5.0) g/dl Globulin gm/dL Albumin/Globulin Ratio (1-2) Lipase (73-393) U/L TSH 3rd Generation 0.574 (0.358-3.74) uIU/mL Urine Color Dark yellow (Yellow) Urine Appearance Clear (Clear) Urine pH 5.5 (5.0-8.0) Ur Specific [place] > or = 1.030 (1.005-1.030) Urine Protein 3+ H (Negative) Urine Glucose (UA) Negative (Negative) Urine Ketones 1+ H (Negative) Urine Occult Blood 2+ H (Negative) Urine Nitrite Negative (Negative) Urine Bilirubin 1+ H (Negative) Urine Urobilinogen 0.2 (0.2-1.0) Ur Leukocyte Esterase Negative (Negative) U Hyaline Cast (Auto) 20-30 H (0-5) /lpf Urine RBC 0-5 (0-5) /hpf Urine WBC 0-5 (0-5) /hpf Ur Squamous Epith Cells 5-10 H (0-5) /hpf Urine Bacteria Moderate H (FEW) /hpf Urine Mucus Moderate H (FEW) /hpf Urine HCG, Qual (NEGATIVE) Urine Opiates Screen (BROWNP=193) Ur Buprenorphine Scrn (CUTOFF=10) Ur Oxycodone Screen (NGL5JL=285) Urine Methadone Screen (NAZPZN=255) Ur Propoxyphene Screen (VRHLLL=775) Ur Barbiturates Screen (YOSMZJ=546) Ur Tricyclics Screen (NWJCCW=544) Ur Phencyclidine Scrn (CUTOFF=25) Ur Amphetamine Screen (MPLVFB=450) U Methamphetamines Scrn (JJAXKO=484) U Benzodiazepines Scrn (BRZAPP=943) U Cocaine Metab Screen (AGKHLX=535) U Marijuana (THC) Screen (CUTOFF=50) Ethyl Alcohol 0.13 (0.00) gm% 09/02/20 09/02/20 09/03/20 Range/Units 19:38 19:38 02:01 WBC (3.98-10.04) K/mm3 RBC (3.98-5.22) M/mm3 Hgb (11.2-15.7) gm/dl Hct (34.1-44.9) % MCV (79.4-94.8) fl MCH (25.6-32.2) pg MCHC (32.2-35.5) g/dl RDW Std Deviation (36.4-46.3) fL Plt Count (182-369) K/mm3 MPV (9.4-12.3) fl Neut % (Auto) (34.0-71.1) % Lymph % (Auto) (19.3-51.7) % [place] % (Auto) (4.7-12.5) % Eos % (Auto) (0.7-5.8) Baso % (Auto) (0.1-1.2) % Neut # (Auto) (1.56-6.13) K/mm3 Lymph # (Auto) (1.18-3.74) K/mm3 [place] # (Auto) (0.24-0.36) K/mm3 Eos # (Auto) (0.04-0.36) K/mm3 Baso # (Auto) (0.01-0.08) K/mm3 Manual Slide Review PT (9.7-11.7) SECONDS INR Sodium 135 L (136-145) mEq/L Potassium 3.6 (3.5-5.1) mEq/L Chloride 95 L (98-107) mEq/L Carbon Dioxide 33 H (21-32) mEq/L Anion Gap 10.6 (5-15) BUN 10 (7-18) mg/dL Creatinine 1.0 (0.55-1.02) mg/dL Est Cr Clr Drug Dosing 91.38 mL/min Estimated GFR (MDRD) > 60 (>60) mL/min BUN/Creatinine Ratio 10.0 L (14-18) Glucose 108 H (74-106) mg/dL Calcium 8.4 L (8.5-10.1) mg/dL Magnesium (1.8-2.4) mg/dl Total Bilirubin (0.2-1.0) mg/dL GGT (5-55) U/L AST (15-37) U/L ALT (14-59) U/L Alkaline Phosphatase (46-116) U/L Total Protein (6.4-8.2) g/dl Albumin (3.4-5.0) g/dl Globulin gm/dL Albumin/Globulin Ratio (1-2) Lipase (73-393) U/L TSH 3rd Generation (0.358-3.74) uIU/mL Urine Color (Yellow) Urine Appearance (Clear) Urine pH (5.0-8.0) Ur Specific [place] (1.005-1.030) Urine Protein (Negative) Urine Glucose (UA) (Negative) Urine Ketones (Negative) Urine Occult Blood (Negative) Urine Nitrite (Negative) Urine Bilirubin (Negative) Urine Urobilinogen (0.2-1.0) Ur Leukocyte Esterase (Negative) U Hyaline Cast (Auto) (0-5) /lpf Urine RBC (0-5) /hpf Urine WBC (0-5) /hpf Ur Squamous Epith Cells (0-5) /hpf Urine Bacteria (FEW) /hpf Urine Mucus (FEW) /hpf Urine HCG, Qual Negative (NEGATIVE) Urine Opiates Screen Negative (HLZVID=601) Ur Buprenorphine Scrn Negative (CUTOFF=10) Ur Oxycodone Screen Negative (TDR6YO=741) Urine Methadone Screen Negative (QHINBT=797) Ur Propoxyphene Screen Negative (AOGUNH=645) Ur Barbiturates Screen Negative (VOSLSZ=280) Ur Tricyclics Screen Negative (VHUABO=752) Ur Phencyclidine Scrn Negative (CUTOFF=25) Ur Amphetamine Screen Negative (MOOCBR=246) U Methamphetamines Scrn Negative (XUJEZL=987) U Benzodiazepines Scrn Negative (AOJPJV=726) U Cocaine Metab Screen Negative (PSMCVL=372) U Marijuana (THC) Screen Negative (CUTOFF=50) Ethyl Alcohol (0.00) gm% Meds: Medications Generic Name Dose Route Start Last Admin Trade Name Maisha PRN Reason Stop Dose Admin Lactated Ringer's 1,000 mls @ 125 mls/hr 09/02/20 23:00 09/02/20 23:24 Ringers, Lactated IV 125 mls/hr ASDIRECTED RONDA Administration Potassium Chloride 10 meq/ 100 mls @ 100 mls/hr 09/03/20 02:00 09/03/20 03:10 Premix IV 09/03/20 05:59 100 mls/hr Q1H RONDA Administration Discontinued Medications Generic Name Dose Route Start Last Admin Trade Name Robertq PRN Reason Stop Dose Admin Cyanocobalamin 1,000 mcg 09/02/20 20:17 09/02/20 21:16 Vitamin B12 IM 09/02/20 20:18 1,000 mcg ONETIME ONE Administration Diphenhydramine HCl 25 mg 09/02/20 21:50 09/02/20 21:54 Benadryl IVPUSH 09/02/20 21:51 25 mg ONETIME ONE Administration Folic Acid 1 mg 09/03/20 20:17 Folic Acid IV 09/03/20 20:18 ONETIME ONE Folic Acid 1 mg 09/02/20 21:45 09/02/20 23:44 Folic Acid IV 09/02/20 21:46 Not Given ONETIME ONE Lactated Ringer's 1,000 mls @ 999 mls/hr 09/02/20 19:12 09/02/20 19:35 Ringers, Lactated IV 09/02/20 20:12 999 mls/hr .BOLUS ONE Administration Potassium Chloride 10 meq/ 100 mls @ 100 mls/hr 09/02/20 19:45 09/03/20 00:39 Premix IV 09/02/20 23:44 100 mls/hr Q1H RONDA Administration Lactated Ringer's 1,000 mls @ 999 mls/hr 09/02/20 19:38 09/02/20 20:03 Ringers, Lactated IV 09/02/20 20:38 999 mls/hr .BOLUS ONE Administration Magnesium Sulfate 2 gm in 50 mls @ 25 mls/hr 09/02/20 20:30 09/02/20 21:04 Magnesium Sulfate In Water Premix IV 09/02/20 22:29 25 mls/hr ONETIME ONE Administration Lorazepam 1 mg 09/02/20 19:28 09/02/20 19:42 Ativan IVPUSH 09/02/20 19:29 1 mg ONETIME ONE Administration Lorazepam 0.5 mg 09/02/20 23:09 09/02/20 23:26 Ativan IVPUSH 09/02/20 23:10 0.5 mg ONETIME ONE Administration Magnesium Sulfate 2 gm 09/02/20 20:20 Magnesium Sulfate In Water Premix IV 09/02/20 20:21 ONETIME ONE Metoclopramide HCl 5 mg 09/02/20 20:58 09/02/20 21:11 Reglan IVPUSH 09/02/20 20:59 5 mg ONETIME ONE Administration Metoclopramide HCl 5 mg 09/02/20 21:50 09/02/20 21:54 Reglan IVPUSH 09/02/20 21:51 5 mg ONETIME ONE Administration Ondansetron HCl 4 mg 09/02/20 19:15 09/02/20 19:35 Zofran IVPUSH 09/02/20 19:16 4 mg ONETIME ONE Administration Prochlorperazine Edisylate 10 mg 09/02/20 23:09 09/02/20 23:18 Compazine IVPUSH 09/02/20 23:10 10 mg ONETIME ONE Administration Thiamine HCl 100 mg 09/02/20 20:17 09/02/20 21:16 Vitamin B-1 IM 09/02/20 20:18 100 mg ONETIME ONE Administration - Re-Assessments/Exams Free Text/Narrative Re-Assessment/Exam: 09/03/20 05:25 Patient's chemistries have normalized somewhat potassium is well within the normal range. The patient is more talkative and would like to go home. The patient is well aware of AA and will start going to meetings again. Also received 2 g of magnesium. Departure - Departure Time of Disposition: 05:30 Disposition: Home, Self-Care 01 Clinical Impression: Acute alcohol intoxication, Hypokalemia, Hypomagnesemia - Discharge Information Referrals: PCP,None [Primary Care Provider] - Forms: ED Department Discharge Additional Instructions: Return to the emergency room with any questions problems or worsening symptoms. You have been given a prescription for Zofran, this is to help with nausea. Use as directed. This has been sent to the clinic pharmacy. Call the hospital clinic and schedule an appointment for early next week for recheck. [phone] Follow-up with AA as we discussed. Reconsider following up with [facility] services. Sepsis Event Note (ED) - Evaluation Sepsis Screening Result: No Definite Risk - Focused Exam Vital Signs: Vital Signs Temp Pulse Resp BP Pulse Ox 09/02/20 17:55 37.0 C 98 16 141/86 H 97 - My Orders Last 24 Hours: My Active Orders 09/02/20 23:00 Lactated Ringers [Ringers, Lactated] 1,000 ml IV ASDIRECTED 09/02/20 23:13 Abdomen 2V AP Flat Upright [CR] Stat 09/03/20 02:00 Potassium Chloride [KCl 10 MEQ in Water 100 ML] 10 meq Premix Bag 1 bag IV Q1H - Assessment/Plan Last 24 Hours: My Active Orders 09/02/20 23:00 Lactated Ringers [Ringers, Lactated] 1,000 ml IV ASDIRECTED 09/02/20 23:13 Abdomen 2V AP Flat Upright [CR] Stat 09/03/20 02:00 Potassium Chloride [KCl 10 MEQ in Water 100 ML] 10 meq Premix Bag 1 bag IV Q1H
[2020-09-02] MEDS ORDERED: Lactated Ringers 1,000 ML IV ONE ×2 (19:12→19:38)
[2020-09-02] MEDS ORDERED: Ondansetron 4 MG/2 ML SDV IVPUSH ONE (19:15)
[2020-09-02] MEDS ORDERED: LORazepam 2 MG/ML SDV IVPUSH ONE ×2 (19:28→23:09)
[2020-09-02] MEDS: Potassium Chloride 10 MEQ in Premix Bag 1 BAG IV SCH ×3 (19:46→23:18)
[2020-09-02] MEDS ORDERED: Thiamine 200 MG/2 ML MDV IM ONE (20:17)
[2020-09-02] MEDS ORDERED: Cyanocobalamin (Vitamin B12) 1,000 MCG/ML SDV IM ONE (20:17)
[2020-09-02] MEDS ORDERED: Magnesium Sulfate/Water 2 GM/50 ML Premix Bag IV ONE (20:20)
[2020-09-02] MEDS ORDERED: Magnesium Sulfate/Water 2 GM/50 ML BAG IV ONE (20:30)
[2020-09-02] MEDS ORDERED: Metoclopramide 10 MG/2 ML SDV IVPUSH ONE ×2 (20:58→21:50)
[2020-09-02] MEDS ORDERED: Folic Acid 50 MG/10 ML MDV IV ONE (21:45)
[2020-09-02] MEDS ORDERED: diphenhydrAMINE 50 MG/ML SDV IVPUSH ONE (21:50)
[2020-09-02] MEDS ORDERED: Lactated Ringers 1,000 ML IV SCH (23:00)
[2020-09-02] MEDS ORDERED: Prochlorperazine 10 MG/2 ML SDV IVPUSH ONE (23:09)
[2020-09-03] MEDS: Potassium Chloride 10 MEQ in Premix Bag 1 BAG IV SCH ×4 (00:39→05:28)
[2020-09-03] MEDS ORDERED: Folic Acid 50 MG/10 ML MDV IV ONE (20:17)
== END 2020-09-03 05:58 | disposition home or self-care (01) ==
LOC: JD.ED 16:41
DX: F10.129 Alcohol abuse with intoxication, unspecified (principal); E87.6 Hypokalemia; E83.42 Hypomagnesemia; F41.9 Anxiety disorder, unspecified; F32.9 Major depressive disorder, single episode, unspecified; Z88.0 Allergy status to penicillin; Z79.899 Other long term (current) drug therapy
CPT/HCPCS: 36415; 74019; 80048; 80053; 80306; 80307; 81001; 81025; 82977; 83690; 83735; 84443; 85025; 85610; 96365; 96366; 96367; 96372; 96375; 96376; 99284; J0780; J1200; J2060; J2405; J2765; J3411; J3420; J3475; J3480; J7120

== ENCOUNTER 2021-09-23 21:55 | Inpatient (IN) | payer BC, MEDICAID ==
[2021-09-23] MEDS ORDERED: Nalbuphine 10 MG/1 ML Vial IVPUSH PRN (22:34)
[2021-09-23] MEDS ORDERED: Sodium Chloride 0.9% 10 ML Syringe FLUSH PRN (22:34)
[2021-09-23] MEDS ORDERED: Oxytocin/Lactated Ringers 10 UNIT/1,000 ML BAG IV SCH (22:45)
[2021-09-23] MEDS ORDERED: Bupivacaine/fentaNYL/NS 100 ML Bag EPIDUR PRN (23:01)
[2021-09-23] MEDS ORDERED: ePHEDrine 50 MG/ML SDV IVPUSH PRN (23:01)
[2021-09-23] MEDS ORDERED: fentaNYL 100 MCG/2 ML SDV EPIDUR PRN (23:01)
[2021-09-23] MEDS ORDERED: diphenhydrAMINE 50 MG/ML SDV IVPUSH PRN (23:01)
[2021-09-23] MEDS: Lactated Ringers 1,000 ML IV SCH (23:03)
--- NOTE | 2021-09-24 00:12 | PCM.PREANE ---
Preanesthetic Assessment - Procedure Proposed Procedure: epidural - Anesthesia/Transfusion/Family Hx Anesthesia History: Prior Anesthesia Without Reaction Family History of Anesthesia Reaction: No Transfusion History: No Prior Transfusion(s) - Review of Systems General: Fatigue, Malaise Pulmonary: No Symptoms Cardiovascular: No Symptoms Gastrointestinal: Abdominal Pain (labor) Neurological: No Symptoms, Seizure ("a year ago") Other: Reports: None - Physical Assessment Vital Signs: Last Vital Signs Temp 36.7 C 09/23/21 23:30 Pulse 98 09/23/21 23:30 Resp 16 09/23/21 23:30 BP 140/79 09/23/21 23:30 Pulse Ox 98 09/23/21 23:30 Height: 1.7 m Weight: 103.419 kg ASA Class: 2 Mental Status: Alert & Oriented x3 Airway Class: Mallampati = 1 Dentition: Reports: Normal Dentition Thyro-Mental Finger Breadths: 3 Mouth Opening Finger Breadths: 3 ROM/Head Extension: Full Lungs: Clear to Auscultation, Normal Respiratory Effort Cardiovascular: Regular Rate, Regular Rhythm - Lab Values: Laboratory Last Values WBC 15.50 K/mm3 (3.98-10.04) H 09/23/21 22:45 RBC 4.18 M/mm3 (3.98-5.22) 09/23/21 22:45 Hgb 12.9 gm/dl (11.2-15.7) 09/23/21 22:45 Hct 38.2 % (34.1-44.9) 09/23/21 22:45 MCV 91.4 fl (79.4-94.8) 09/23/21 22:45 MCH 30.9 pg (25.6-32.2) 09/23/21 22:45 MCHC 33.8 g/dl (32.2-35.5) 09/23/21 22:45 RDW Std Deviation 42.5 fL (36.4-46.3) 09/23/21 22:45 Plt Count 333 K/mm3 (182-369) 09/23/21 22:45 MPV 10.4 fl (9.4-12.3) 09/23/21 22:45 SARS-CoV-2 RNA (DANIEL) Negative (NEGATIVE) 09/23/21 22:53 Blood Type O NEGATIVE 09/23/21 22:45 Gel Antibody Screen Negative 09/23/21 22:45 - Allergies Allergies/Adverse Reactions: Allergies Allergy/AdvReac Type Severity Reaction Status Date / Time Penicillins Allergy Rash Verified 09/23/21 22:41 - Anesthesia Plan Pre-Op Medication Ordered: None - Acknowledgements Anesthesia Type Planned: Epidural Pt an Appropriate Candidate for the Planned Anesthesia: Yes Alternatives and Risks of Anesthesia Discussed w Pt/Guardian: Yes Pt/Guardian Understands and Agrees with Anesthesia Plan: Yes PreAnesthesia Questionnaire HEENT History: Reports: None Gastrointestinal History: Reports: GERD 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: Neurological History: Reports: 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 Psychiatric History: Reports: Addiction, Anxiety, Depression - Past Surgical History HEENT Surgical History: Reports: Other (See Below) Other HEENT Surgeries/Procedures: wisdom teeth Neurological Surgical History: Reports: None - HOME MEDS Home Medications: Home Meds Pnv No.95/Ferrous Fum/Folic AC [ Tablet] 1 each PO DAILY 09/23/21 [History] - CURRENT (IN HOUSE) MEDS Current Meds: Current Medications Diphenhydramine HCl (Diphenhydramine 50 Mg/Ml Sdv) 25 mg IVPUSH Q6H PRN PRN Reason: pruritis Ephedrine Sulfate (Ephedrine 50 Mg/Ml Sdv) 5 mg IVPUSH ASDIRECTED PRN PRN Reason: Hypotension Fentanyl (Fentanyl 100 Mcg/2 Ml Sdv) 100 mcg EPIDUR Q3H PRN PRN Reason: Pain Last Admin: 09/23/21 23:50 Dose: 100 mcg Documented by: Fentanyl/Bupivacaine HCl (Bupivacaine/Fentanyl/Ns 100 Ml Bag) 100 ml EPIDUR ASDIRECTED PRN PRN Reason: Pain Last Admin: 09/23/21 23:51 Dose: 100 ml Documented by: Oxytocin/Lactated Ringer's (Pitocin In Lr 10 Units/1,000 Ml) 10 unit in 1,000 mls @ 100 mls/hr IV .CONTINUOUS RONDA Lactated Ringer's (Ringers, Lactated) 1,000 mls @ 100 mls/hr IV ASDIRECTED RONDA Last Admin: 09/23/21 23:03 Dose: 100 mls/hr Documented by: Nalbuphine HCl (Nalbuphine 10 Mg/1 Ml Vial) 10 mg IVPUSH Q2H PRN PRN Reason: Pain Sodium Chloride (Sodium Chloride 0.9% 10 Ml Syringe) 10 ml FLUSH ASDIRECTED PRN PRN Reason: Keep Vein Open
[2021-09-24] MEDS: Lactated Ringers 1,000 ML IV SCH ×2 (00:55→00:56)
--- NOTE | 2021-09-24 03:20 | PCM.SN.2 ---
- Free Text/Narrative Note: Stage I - Patient presented in active labor. Progressed to complete with epidural anesthesia. SROM clear fluid at 1248. Stage II - of viable female, weight 3050g at 0301 with apgars 7/8 over small first degree midline laceration. Body and shoulders atraumatically. To maternal abdomen. Weak cry. Cord clamped and cut. To warmer. Stage III - of intact placenta. 3vc. Laceration repaired with 3-0 vicryl. EBL 250
[2021-09-24] MEDS ORDERED: Benzocaine/Menthol 20%-0.5% Spray 78 GM Cannister TOP PRN (03:43)
[2021-09-24] MEDS ORDERED: Witch Hazel Medicated Pads 40/Jar TOP PRN (03:43)
[2021-09-24] MEDS: Ibuprofen 600 MG Tab PO PRN ×2 (04:32→20:36)
[2021-09-24] MEDS: Acetaminophen 325 MG Tab PO PRN ×2 (09:03→20:40)
--- NOTE | 2021-09-24 09:19 | PCM48HPAN ---
Post Anesthesia Note - EVALUATION WITHIN 48HRS OF ANESTHETIC Vital Signs in Normal Range: Yes Patient Participated in Evaluation: Yes Respiratory Function Stable: Yes Airway Patent: Yes Cardiovascular Function Stable: Yes Hydration Status Stable: Yes Pain Control Satisfactory: Yes Nausea and Vomiting Control Satisfactory: Yes Mental Status Recovered: Yes Vital Signs: Last Vital Signs Temp 36.7 C 09/23/21 23:30 Pulse 98 09/23/21 23:30 Resp 16 09/23/21 23:30 BP 140/79 09/23/21 23:30 Pulse Ox 98 09/23/21 23:30
[2021-09-24] MEDS ORDERED: Bupivacaine 0.25% 10 ML SDV ONE (14:00)
[2021-09-24] MEDS: Docusate Sodium 100 MG Cap PO SCH (20:36)
[2021-09-25] MEDS: Ibuprofen 600 MG Tab PO PRN (02:20)
--- NOTE | 2021-09-25 07:08 | PCM.DCSUM1 ---
Discharge Summary - Hospital Course Diagnosis: Stroke: No - Discharge Data Discharge Date: 09/25/21 Discharge Disposition: Home, Self-Care 01 Condition: Good - Referral to Home Health Primary Care Physician: Sheldon Agrawal MD - Patient Summary/Data Hospital Course: Stage I - Patient presented in active labor. Progressed to complete with epidura l anesthesia. SROM clear fluid at 1248. Stage II - of viable female, weight 3050g at 0301 with apgars 7/8 over small first degree midline laceration. Body and shoulders atraumatically. To maternal abdomen. Weak cry. Cord clamped and cut. To warmer. Stage III - of intact placenta. 3vc. Laceration repaired with 3-0 vicryl. EBL 250 - Patient Instructions Diet: Usual Diet as Tolerated Activity: No Strenuous Activities Driving: May Drive Today Notify Provider of: Fever - Discharge Plan *PRESCRIPTION DRUG MONITORING PROGRAM REVIEWED*: No *COPY OF PRESCRIPTION DRUG MONITORING REPORT IN PATIENT EVE: No Home Medications: Home Meds Pnv No.95/Ferrous Fum/Folic AC [ Tablet] 1 each PO DAILY 09/23/21 [History] Referrals: Eleanor Shane MD [Physician] - (2 weeks) - Discharge Summary/Plan Comment DC Time >30 min.: No Total # of Minutes for Discharge Time: 15 - General Info Date of Service: 09/25/21 Functional Status: Reports: Pain Controlled - Review of Systems General: Reports: No Symptoms HEENT: Reports: No Symptoms Pulmonary: Reports: No Symptoms Cardiovascular: Reports: No Symptoms Gastrointestinal: Reports: No Symptoms Genitourinary: Reports: No Symptoms Musculoskeletal: Reports: No Symptoms Skin: Reports: No Symptoms Neurological: Reports: No Symptoms Psychiatric: Reports: No Symptoms - Patient Data Vitals - Most Recent: Last Vital Signs Temp 36.2 C 09/25/21 02:23 Pulse 57 L 09/25/21 02:23 Resp 13 09/25/21 02:23 BP 130/66 09/25/21 02:23 Pulse Ox 96 09/25/21 02:23 Weight - Most Recent: 103.419 kg Lab Results - Last 24 hrs: Laboratory Results - last 24 hr 09/23/21 09/24/21 09/24/21 Range/Units 22:45 06:47 06:47 RPR Non-reactive (NONREACTIVE) Hepatitis C Antibody Negative (NEGATIVE) Blood Type Cancelled Gel Antibody Screen Cancelled Screen 0 ros/5 flds - neg RhIG Candidate? Yes Rhogam Indicated Cancelled Med Orders - Current: Current Medications Acetaminophen (Acetaminophen 325 Mg Tab) 650 mg PO Q4H PRN PRN Reason: Pain Last Admin: 09/24/21 20:40 Dose: 650 mg Documented by: Benzocaine/Menthol (Benzocaine/Menthol 20%-0.5% [place] 78 Gm Cannister) 0 gm TOP ASDIRECTED PRN PRN Reason: Perineal Comfort Measure Last Admin: 09/24/21 04:32 Dose: 1 canister Documented by: Docusate Sodium (Docusate Sodium 100 Mg Cap) 100 mg PO BID RONDA Last Admin: 09/24/21 20:36 Dose: 100 mg Documented by: Ibuprofen (Ibuprofen 600 Mg Tab) 600 mg PO Q6H PRN PRN Reason: Mild pain or fever Last Admin: 09/25/21 02:20 Dose: 600 mg Documented by: Martin Clemens (Martin Clemens Medicated Pads 40/Jar) 1 pad TOP ASDIRECTED PRN PRN Reason: Perineal Comfort Measure Last Admin: 09/24/21 04:32 Dose: 1 canister Documented by: Discontinued Medications Bupivacaine HCl (Bupivacaine 0.25% 10 Ml Sdv) 10 ml .ROUTE .STK-MED ONE Stop: 09/24/21 14:01 Diphenhydramine HCl (Diphenhydramine 50 Mg/Ml Sdv) 25 mg IVPUSH Q6H PRN PRN Reason: pruritis Ephedrine Sulfate (Ephedrine 50 Mg/Ml Sdv) 5 mg IVPUSH ASDIRECTED PRN PRN Reason: Hypotension Fentanyl (Fentanyl 100 Mcg/2 Ml Sdv) 100 mcg EPIDUR Q3H PRN PRN Reason: Pain Last Admin: 09/23/21 23:50 Dose: 100 mcg Documented by: Fentanyl/Bupivacaine HCl (Bupivacaine/Fentanyl/Ns 100 Ml Bag) 100 ml EPIDUR ASDIRECTED PRN PRN Reason: Pain Last Admin: 09/23/21 23:51 Dose: 100 ml Documented by: Oxytocin/Lactated Ringer's (Pitocin In Lr 10 Units/1,000 Ml) 10 unit in 1,000 mls @ 100 mls/hr IV .CONTINUOUS RONDA Last Admin: 09/24/21 03:03 Dose: 100 mls/hr Documented by: Lactated Ringer's (Ringers, Lactated) 1,000 mls @ 100 mls/hr IV ASDIRECTED RONDA Last Admin: 09/24/21 00:56 Dose: 100 mls/hr Documented by: Nalbuphine HCl (Nalbuphine 10 Mg/1 Ml Vial) 10 mg IVPUSH Q2H PRN PRN Reason: Pain Sodium Chloride (Sodium Chloride 0.9% 10 Ml Syringe) 10 ml FLUSH ASDIRECTED PRN PRN Reason: Keep Vein Open - Exam General: Reports: Alert, Oriented HEENT: Reports: Pupils Equal, Pupils Reactive, EOMI, Mucous Membr. Moist/[place] Neck: Reports: Supple Lungs: Reports: Clear to Auscultation, Normal Respiratory Effort Cardiovascular: Reports: Regular Rate, Regular Rhythm GI/Abdominal Exam: Normal Bowel Sounds, Soft, Non-Tender, No Organomegaly, No Distention, No Abnormal Bruit, No Mass Rectal (Female) Exam: Normal Exam, Normal Rectal Tone Back Exam: Reports: Normal Inspection, Full Range of Motion Extremities: Normal Inspection, Normal Range of Motion, Non-Tender, No Pedal Edema, Normal Capillary Refill Neurological: Reports: No New Focal Deficit Psy/Mental Status: Reports: Alert, Normal Affect, Normal Mood
[2021-09-25] MEDS: Docusate Sodium 100 MG Cap PO SCH (14:14)
--- NOTE | 2021-10-08 13:45 | PCM.HP.2 ---
H&P History of Present Illness - General Date of Service: 09/23/21 Admit Problem/Dx: Admission Diagnosis/Problem Admission Diagnosis/Problem - History of Present Illness Initial Comments - Free Text/Narative: Presents complaining of contractions and labor. Cervical change. 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: Neurological History: Reports: Seizure Psychiatric History: Reports: Addiction, Anxiety, Depression - Past Surgical History HEENT Surgical History: Reports: Other (See Below) Other HEENT Surgeries/Procedures: wisdom teeth 2012 Neurological Surgical History: Reports: None Oncologic Surgical History: Reports: None Social & Family History - Family History Family Medical History: No Pertinent Family History - Tobacco Use Tobacco Use Status *Q: Former Tobacco User Years of Tobacco use: 3 Used Tobacco, but Quit: Yes Month/Year Tobacco Last Used: 03/2021 Second Hand Smoke Exposure: No - Caffeine Use Caffeine Use: Reports: Coffee, Energy Drinks, Soda - Recreational Drug Use Recreational Drug Use: No H&P Review of Systems - Review of Systems: Review Of Systems: See Below General: Reports: No Symptoms HEENT: Reports: No Symptoms Pulmonary: Reports: No Symptoms Cardiovascular: Reports: No Symptoms Gastrointestinal: Reports: No Symptoms Genitourinary: Reports: No Symptoms Musculoskeletal: Reports: No Symptoms Skin: Reports: No Symptoms Psychiatric: Reports: No Symptoms Neurological: Reports: No Symptoms Hematologic/Lymphatic: Reports: No Symptoms Immunologic: Reports: No Symptoms Exam - Exam Exam: See Below - Vital Signs Vital Signs: Last Vital Signs Temp 36.1 C 09/25/21 10:33 Pulse 81 09/25/21 10:33 Resp 15 09/25/21 10:33 BP 137/79 09/25/21 10:33 Pulse Ox 98 09/25/21 10:33 Weight: 103.419 kg - Exam General: Alert, Oriented, 4 HEENT: PERRLA, Hearing Intact, Mucosa Moist & [place], Nares Patent, Normal Nasal Septum, Posterior Pharynx Clear, Conjunctiva Clear, EOMI, EACs Clear, TMs Clear Neck: Supple, Trachea Midline, 2 Lungs: Clear to Auscultation, Normal Respiratory Effort Cardiovascular: Regular Rate, Regular Rhythm GI/Abdominal Exam: Normal Bowel Sounds, Soft, Non-Tender, No Organomegaly, No Distention Rectal (Female) Exam: Normal Exam Back Exam: Normal Inspection, Full Range of Motion, NT Extremities: Normal Inspection, Normal Range of Motion, Non-Tender, No Pedal Edema, Normal Capillary Refill Skin: Warm, Dry, Intact Neurological: Cranial Nerves Intact, Reflexes Equal Bilateral Neuro Extensive - Mental Status: Alert, Oriented x3, Normal Mood/Affect, Normal Cognition Neuro Extensive - Motor, Sensory, Reflexes: CN II-XII Intact, Normal Gait, Normal Reflexes Psychiatric: Alert, Normal Affect, Normal Mood - Patient Data Result Diagrams: 09/23/21 22:45 Sepsis Event Note - Evaluation Sepsis Screening Result: No Definite Risk Problem List Initiated/Reviewed/Updated: No
== END 2021-09-25 11:00 | disposition home or self-care (01) | DRG 560 ==
LOC: JD.OBCHECK 21:55 → JD.OB 22:02 → JD.OBCHECK 23:37 → JD.OB 23:38 → OBSVTOIN 09-24 03:01 → JD.OB 09-24 03:02
PROVIDERS: ADMIT Obstetrics & Gynecology; ATTEND Obstetrics & Gynecology
PROC: 10E0XZZ Delivery of Products of Conception, External Approach (ICD-10-PCS; principal; 2021-09-24)
PROC: 0HQ9XZZ Repair Perineum Skin, External Approach (ICD-10-PCS; 2021-09-24)
PROC: 3E0R3BZ Introduction of Anesthetic Agent into Spinal Canal, Percutaneous Approach (ICD-10-PCS; 2021-09-24)
DX: O70.0 First degree perineal laceration during delivery (principal); Z3A.39 39 weeks gestation of pregnancy; Z37.0 Single live birth; Z20.822 Contact with and (suspected) exposure to COVID-19
CPT/HCPCS: 01967; 36415; 51702; 59025; 59409; 85027; 85461; 86592; 86803; 86850; 86900; 86901; A9270-GY; J2590; J2790; J3010; J3490; J7120; U0002

== ENCOUNTER 2024-06-01 06:04 | Emergency (ER) | payer OTHER ==
[2024-06-01] MEDS: Ondansetron 4 MG/2 ML SDV IVPUSH ONE (06:17)
[2024-06-01] MEDS: Sodium Chloride 0.9% 10 ML Syringe FLUSH PRN (06:17)
[2024-06-01 06:18] LABS: BASOPHILS ABSOLUTE AUTO 0.1 K/mm3 (0.0-0.2); BASOPHILS PERCENT AUTO 0.4 % (0.0-1.0); EOSINOPHILS PERCENT AUTO 0.2 % (0.0-6.0); HEMATOCRIT 44.4 % (37.0-47.0); HEMOGLOBIN 15.7 gm/dl (12.0-16.0); IMMATURE GRAN ABSOLUTE AUTO 0.05 K/mm3 (0.00-0.05); IMMATURE GRAN PERCENT AUTO 0.4 % (0.0-0.4); LYMPHOCYTES ABSOLUTE AUTO 2.1 K/mm3 (1.0-4.8); LYMPHOCYTES PERCENT AUTO 17.7 % (24.0-44.0); MEAN CORPUSCULAR HEMOGLOBIN 29.8 pg (28.0-32.0); MEAN CORPUSCULAR HGB CONC 35.4 g/dl (32.0-36.0); MEAN CORPUSCULAR VOLUME 84.3 fl (83.0-99.0); MEAN PLATELET VOLUME 9.3 fl (9.4-12.3); MONOCYTES ABSOLUTE AUTO 0.7 K/mm3 (0.0-0.8); MONOCYTES PERCENT AUTO 6.2 % (0.0-8.0); NEUTROPHILS ABSOLUTE AUTO 8.8 K/mm3 (1.8-7.7); NEUTROPHILS PERCENT AUTO 75.1 % (41.0-71.0); PLATELET COUNT,PLT 485 K/mm3 (150-400); RED BLOOD CELL COUNT 5.27 M/mm3 (4.10-5.30); WHITE BLOOD CELL COUNT,WBC 11.66 K/mm3 (3.9-11.3)
[2024-06-01 06:19] LABS: APPEARANCE,URINE CLEAR (Clear); BILIRUBIN,URINE NEGATIVE (Negative); COLOR,URINE DARK YELLOW (Yellow); GLUCOSE,URINE NEGATIVE (Negative); KETONES,URINE 2+ (Negative); LEUKOCYTE ESTERASE,URINE NEGATIVE (Negative); NITRITE,URINE NEGATIVE (Negative); OCCULT BLOOD,URINE 2+ (Negative); PROTEIN,URINE 2+ (Negative); UROBILINOGEN,URINE 0.2 (0.2-1.0)
[2024-06-01] MEDS: Sodium Chloride 0.9% 1,000 ML IV ONE ×2 (06:30→08:28)
[2024-06-01 06:31] LABS: BARBITURATE SCREEN,URINE NEGATIVE (CUTOFF=200); BENZODIAZEPINES SCREEN,URINE NEGATIVE (CUTOFF=150); BUPRENORPHINE SCREEN,URINE NEGATIVE (CUTOFF=10); METHADONE SCREEN, URINE NEGATIVE (CUTOFF=200); METHAMPHETAMINES SCREEN, URINE NEGATIVE (CUTOFF=500); OXYCODONE SCREEN,URINE NEGATIVE (CUT0FF=100); THC SCREEN,URINE 20 NG/ML PRESUMPTIVE POSITIVE (CUTOFF=50)
[2024-06-01 06:33] LABS: AMPHETAMINES SCREEN, URINE NEGATIVE (CUTOFF=500)
[2024-06-01 06:50] LABS: A/G RATIO 1.1 (1-2); ALBUMIN 4.6 g/dl (3.4-5.0); ANION GAP 20.2 (5-15); BILIRUBIN TOTAL 0.8 mg/dL (0.2-1.0); BUN/CREATININE RATIO 16.4 (14-18); CALCIUM 9.9 mg/dL (8.5-10.1); CREATININE 1.1 mg/dL (0.55-1.02); EST CRCL DRUG DOSING (CG) 69.37 mL/min; ETHANOL BLOOD MEDICAL 0.03 gm% (0.00); MAGNESIUM 2.2 mg/dL (1.8-2.4); POTASSIUM,K 3.2 mEq/L (3.5-5.1); PROTEIN TOTAL,TP 8.9 g/dl (6.4-8.2); TSH 2.013 uIU/mL (0.358-3.74)
[2024-06-01 07:00] LABS: BACTERIA,URINE MODERATE /hpf (FEW); MUCUS,URINE MANY /hpf (FEW); SQUAMOUS EPITHELIAL CELLS,UR 30-40 /hpf (0-5); WBC,URINE 0-5 /hpf (0-5); YEAST BUDDING,URINE RARE (NOT SEEN)
[2024-06-01 07:16] LABS: CORONAVIRUS COVID-19 NAA NEGATIVE (NEGATIVE); INFLUENZA A NAA NEGATIVE (NEGATIVE); RESPIRATORY SYNCYTIAL VIR NAA NEGATIVE (NEGATIVE)
[2024-06-01] MEDS: Prochlorperazine 10 MG/2 ML SDV IVPUSH ONE (07:49)
[2024-06-01] MEDS: LORazepam 2 MG/ML SDV IVPUSH ONE (08:27)
== END 2024-06-01 10:30 | disposition home or self-care (01) ==
LOC: JD.ED 06:04
DX: R51.9 Headache, unspecified (principal); R11.0 Nausea; F10.10 Alcohol abuse, uncomplicated; Z88.0 Allergy status to penicillin
CPT/HCPCS: 0241U; 36415; 80053; 80143; 80179; 80306; 80307; 81001; 83735; 84443; 84703; 85025; 96374; 96375; 99284; J0780; J2060; J2405; J3490; J7030